=== PATIENT | male | born 1980 | race Caucasian/White ===

== ENCOUNTER 2021-04-16 20:26 | Emergency (ER) | payer MEDICAID, SELFPAY ==
[2021-02-22 18:14] VITALS: BMI 23.6
[2021-04-16 20:27] VITALS: BP 123/84; PULSE 99; RESP 16; TEMP 36.6; O2SAT 97; BMI 25.7
--- NOTE | 2021-04-16 21:13 | EX.ED.GENINJ ---
HPI History of Present Illness Chief Complaint: Fall Informant: patient Onset/Context/Timing Onset: Weeks (1) Mechanism/Context: Fall Quality of Pain: Sharp Location: Sacrum Worsened by: Sitting, standing Relieved by: Nothing Associated Symptoms Associated Symptoms: Negative for Parasthesias, Weakness, Inability to ambulate and Loss of consciousness Narrative Narrative: Patient presents with pain in his tailbone that began after a fall 1 week ago. Patient states the bruising is getting progressively worse. Patient states he has not seen anybody for this since his fall. Patient states he is on aspirin and Plavix. Patient denies any head injury or loss of consciousness. Patient states he slipped and fell on a step. Patient describes his pain as sharp. Patient states his pain is worse with sitting and standing. Patient states nothing seems to help with the pain. Patient denies any radiation of the pain. Patient denies any bowel or bladder changes. Patient denies any saddle anesthesia. [facility] Medical History Acute ST elevation myocardial infarction (STEMI) of inferior wall (02/22/21) Anxiety Atherosclerotic heart disease of [place] coronary artery without angina pectoris Depression Ischemic cardiomyopathy Substance abuse Home Medications aspirin 81 mg chewable tablet 81 mg PO DAILY #30 tab 04/06/21 [Rx Last Taken Unknown] atorvastatin 40 mg tablet 40 mg PO DAILY #30 tab 04/06/21 [Rx Last Taken Unknown] clopidogrel 75 mg tablet 75 mg PO .COMPLEX #30 tab 04/06/21 [Rx Last Taken Unknown] Allergy/AdvReac Type Severity Reaction Status Date / Time No Known Allergies Allergy Verified 04/16/21 20:30 Surgical History History of coronary artery stent placement (02/22/21) Social History household members: none housing: other details: Presents from court room. Patient is presently incarcerated Smoking Status: Current every day smoker tobacco type: cigarettes alcohol intake: never substance use type: does not use ROS ROS ED Constitutional Constitutional ED: Denies chills or fever(s) Eyes Eyes: Denies blurry vision or change in vision ENT ENT ED: Denies rhinorrhea or sore throat Cardiovascular Cardiovascular: Denies chest pain or palpitations Respiratory/Chest Respiratory/Chest: Denies cough or dyspnea Gastrointestinal Gastrointestinal: Denies nausea or vomiting Genitourinary Genitourinary ED: Denies dysuria or hematuria Musculoskeletal Musculoskeletal: Reports back pain; Denies neck pain Integumentary Denies abscess or rash Neurologic Neurologic: Denies headache(s) or weakness Allergic/Immunologic Allergic/Immunologic ED: Denies mouth swelling or urticaria EXAM Physical Exam Const Vital Signs: 04/16/21 20:27 04/16/21 20:36 Temperature 97.9 F Temperature Source Temporal Pulse Rate 99 Respiratory Rate 16 Respiratory Effort Normal Respiratory Depth Normal Respiratory Pattern Normal Blood Pressure 123/84 H Blood Pressure Mean 97 Pulse Ox 97 Oxygen Delivery Method Room Air Room Air Positive well nourished Neck full ROM General: Negative for tenderness Back/Spine Back/Spine Narrative: There is tenderness over the sacrum. There is edema and ecchymosis over the sacrum and right gluteal area. There is no bony crepitance or step-off. Range of motion was limited in all motions of the lumbar spine secondary to pain. Strength is 5/5 bilaterally in lower extremities. There are no sensory deficits. Neuro oriented x3, CN's II-XII intact bilaterally, moves all extremities, no focal motor deficits and no sensory deficits noted Sensorium / Orientation: alert Psych mental status grossly normal MDM MDM MDM Narrative Medical decision making narrative: X-rays of the sacrum and coccyx were obtained. There are 3 views. On my interpretation, there is no acute fracture or dislocation. There is no soft tissue swelling. Radiologist also interpreted the x-rays and agrees. Patient was advised of his findings. Patient was instructed to continue Tylenol and ibuprofen as needed for pain. Patient is instructed use ice to the area. Patient was instructed to sit on a doughnut pillow to relieve some of the pressure off of his sacrum and coccyx. Patient was instructed to follow-up with his primary care physician in 5 to 7 days. Patient understood and was agreeable with the plan. All questions were answered. Radiography Diagnostic Testing: Radiology Impression Sacrum and Coccyx X-Ray 04/16/21 21:40 IMPRESSION: Normal x-rays of the sacrum and coccyx. Electronically Signed: Kelsey Scmhitt MD at 22:16 EDT , Service support , Discharge Plan Triage Chief Complaint: Fall ED Provider: Wilfredo Carlson Dx/Rx/DC Orders Clinical Impression: Contusion of sacrum Instructions: ED Coccyx or Sacrum Contusion Prescriptions: No Action clopidogrel [Plavix] 75 mg tablet 75 mg PO .COMPLEX Qty: 30 RF: 11 atorvastatin 40 mg tablet 40 mg PO DAILY Qty: 30 RF: 11 aspirin 81 mg tablet,chewable 81 mg PO DAILY Qty: 30 RF: 11 Primary Care Provider: Camacho England Referrals: Camacho England DO [Primary Care Provider] - 3-5 Days Disposition Disposition: Home, Self Care
--- NOTE | 2021-04-16 21:40 | RAD_ITS ---
STUDY: X-RAY - SACRUM/COCCYX REASON FOR EXAM: Male, 41 years old. trauma/pain TECHNIQUE: 3 view(s) of the sacrum and coccyx were obtained. COMPARISON: None. FINDINGS: Normal bilateral sacroiliac joints. Normal visualized sacral ala and fused sacral bodies. Normal sacrococcygeal junction with a normal angulation. Normal coccygeal segments. The presacral soft tissue structures are unremarkable. RAD/Sacrum-Coccyx min 2 Views IMPRESSION: Normal x-rays of the sacrum and coccyx. Electronically Signed: Kelsey Schmitt MD at 22:16 EDT , Service support ,
--- NOTE | 2021-04-16 23:31 | ED.RN ---
entered room to provide d/c instructions and room was empty. pt was not in restrooms or waiting area. chikis sousa rn [id number]
== END 2021-04-16 23:33 | disposition home or self-care (01) ==
PROVIDERS: Emergency Provider Emergency Medicine; PCP Family Medicine
DX: S30.0XXA Contusion of lower back and pelvis, initial encounter (principal); W01.0XXA Fall on same level from slipping, tripping and stumbling without subsequent striking against object, initial encounter; F41.9 Anxiety disorder, unspecified; I25.10 Atherosclerotic heart disease of native coronary artery without angina pectoris; I25.5 Ischemic cardiomyopathy; I25.2 Old myocardial infarction; F17.210 Nicotine dependence, cigarettes, uncomplicated; Z79.82 Long term (current) use of aspirin; Z95.5 Presence of coronary angioplasty implant and graft
CPT/HCPCS: 72220; 99282

== ENCOUNTER 2022-02-03 13:46 | Inpatient (IN) | payer MEDICAID, SELFPAY ==
[2022-02-03] VITALS (9 sets, daily range): BP systolic 105–162; BP diastolic 79–98; PULSE 61–87; RESP 12–25; TEMP 36.4–37.1; O2SAT 95–99; BMI 29.4; BMI 28.2
--- NOTE | 2022-02-03 14:12 | EDS_ITS ---
HPI <FRANSISCO Cardoso - Last Filed: 02/03/22 17:37> History of Present Illness Chief Complaint: Chest Pain Narrative Narrative: 41-year-old male with history of drug abuse, CAD, VA and February 2021 presents to the emergency department with a sudden onset of heartburn, left- sided chest pain that radiates to his left side of his neck. Patient did have 2 cardiac stents placed in February 2021, he states that they were given and Plavix and other medicines however he stopped that approximately 6 months ago. Patient states that he just would continue to forget, he was going through some life changes and just decided not to take any medications. Patient currently does not have a PCP, oil gas and pipe tester. Patient was sitting on the couch watching TV when he developed this pain. He describes it as a burning tingling sensation. Denies any recent trips, fever chills, cough PFSH <FRANSISCO Cardoso - Last Filed: 02/03/22 17:37> PFSH Medical History (Updated 02/03/22 @ 22:[address] Galdino Bradley, DO) Acute ST elevation myocardial infarction (STEMI) of inferior wall (02/22/21) Anxiety Atherosclerotic heart disease of [place] coronary artery without angina pectoris Depression Ischemic cardiomyopathy Substance abuse Home Medications aspirin 81 mg chewable tablet 81 mg PO DAILY #30 tab 04/06/21 [Rx Last Taken Unknown] atorvastatin 40 mg tablet 40 mg PO DAILY #30 tab 04/06/21 [Rx Last Taken Unknown] clopidogrel 75 mg tablet 75 mg PO .COMPLEX #30 tab 04/06/21 [Rx Last Taken Unknown] Allergy/AdvReac Type Severity Reaction Status Date / Time No Known Allergies Allergy Verified 02/03/22 13:48 Family History (Updated 02/03/22 @ 18:19 by Elisha Castillo NP, [employer]ER[employer]C) Mother No cardiac disease Father No cardiac disease Surgical History History of coronary artery stent placement (02/22/21) Social History (Updated 02/03/22 @ 18:20 by Elisha Castillo NP, [employer]NA[employer] T[employer]ER-C) household members: none Smoking Status: Light Smoker (<10/day) alcohol intake: former substance use type: other details: clean one year ROS <FRANSISCO Cardoso - Last Filed: 02/03/22 17:37> ROS ED ROS Narrative Constitutional: Negative for fever, chills, weight loss, weakness Eyes: Negative for vision loss, vision change, double vision ENT: Negative for any sore throat, ear pain, congestion Cardiovascular: Negative for any tightness, palpitations, racing heartbeat. Positive for chest pain that radiates to his left neck Respiratory: Negative for any cough, sputum production, hemoptysis, shortness of breath, shortness of breath on exertion, orthopnea Gastrointestinal: Negative for any abdominal pain, nausea, vomiting, diarrhea, constipation, blood in stool, blood in vomit : Negative for any urinary frequency, incontinence, dysuria, retention, blood in urine Muscle skeletal: Negative for any muscle joint pain, stiffness, myalgias, arthralgias, neck pain, back pain Neurological: Negative for any headache, dizziness, syncope, numbness or tingling Skin: Negative for any rashes, lumps, itching, abrasions, lacerations Psychiatric: Negative for any depression, anxiety, stress, suicidal ideation, homicidal ideation Hematologic: Negative for any easy bruising, excessive bruising, easy bleeding Allergies: Negative for any eczema, hives, rash EXAM <FRANSISCO Cardoso - Last Filed: 02/03/22 17:37> Physical Exam Narrative Exam Narrative: Vital signs reviewed. Patient is alert and orient x4, patient states that on a scale from 0-10, his pain is a 1 to almost nonexistent. Patient states that his got better when she was here. Patient's EKG was unremarkable. HEET: Head normocephalic atraumatic, TMs clear bilaterally. Posterior pharynx is clear, moist mucous membranes. Nares clear bilaterally. Neck: Supple with no lymphadenopathy or tenderness. No signs of meningismus, negative jolt sign. Cardiac: Regular rate and rhythm no murmurs gallops or rubs, equal peripheral pulses bilaterally. Respiratory: Lungs clear to auscultation bilaterally. No chest tenderness. Abdomen: Soft, nontender, nondistended. No abdominal bruit or pulsatile masses. No hepatosplenomegaly Extremities: No peripheral edema, no signs of gross trauma or deformity. Active full range of motion of all extremities. Neuro: Cranial nerves II through XII intact, no focal neurological deficits. Skin: Clean dry and intact with no rash, purpura, petechiae, vesicles or pustules. Backslash flank: No CVA tenderness, no midline spinal tenderness, no deformity. Psych: Normal mood and affect. No SI, HI or acute psychosis. Const Vital Signs: 02/03/22 13:46 02/03/22 13:49 02/03/22 13:51 Temperature 98.2 F Temperature Source Temporal Pulse Rate 87 Respiratory Rate 22 H Respiratory Effort Normal Non-Labored Blood Pressure 162/90 H Blood Pressure Mean 114 Pulse Ox 97 Oxygen Delivery Method Room Air 02/03/22 14:46 02/03/22 16:19 02/03/22 17:36 Temperature Temperature Source Pulse Rate 76 68 74 Respiratory Rate 25 H 12 21 H Respiratory Effort Blood Pressure 135/87 H 132/98 H 141/95 H Blood Pressure Mean 103 109 110 Pulse Ox 95 99 97 Oxygen Delivery Method Room Air Room Air Room Air 02/03/22 17:37 Temperature 98.8 F Temperature Source Oral Pulse Rate 70 Respiratory Rate 17 Respiratory Effort Blood Pressure 141/95 H Blood Pressure Mean 110 Pulse Ox 96 Oxygen Delivery Method Room Air Positive well nourished and well developed General Appearance ED: well developed <Dr. Galdino Bradley, DO - Last Filed: 02/03/22 22:57> Physical Exam Const Vital Signs: 02/03/22 13:46 02/03/22 13:49 02/03/22 13:51 Temperature 98.2 F Temperature Source Temporal Pulse Rate 87 Respiratory Rate 22 H Respiratory Effort Normal Non-Labored Blood Pressure 162/90 H Blood Pressure Mean 114 Pulse Ox 97 Oxygen Delivery Method Room Air 02/03/22 14:46 02/03/22 16:19 02/03/22 17:36 Temperature Temperature Source Pulse Rate 76 68 74 Respiratory Rate 25 H 12 21 H Respiratory Effort Blood Pressure 135/87 H 132/98 H 141/95 H Blood Pressure Mean 103 109 110 Pulse Ox 95 99 97 Oxygen Delivery Method Room Air Room Air Room Air 02/03/22 17:37 Temperature 98.8 F Temperature Source Oral Pulse Rate 70 Respiratory Rate 17 Respiratory Effort Blood Pressure 141/95 H Blood Pressure Mean 110 Pulse Ox 96 Oxygen Delivery Method Room Air MDM <FRANSISCO Cardoso - Last Filed: 02/03/22 17:37> [facility] MDM Narrative Medical decision making narrative: Patient appears well, patient appears nontoxic, vital signs are stable. Patient presents to the emergency department with a sudden onset of epigastric burning, left-sided chest pain while watching TV today. Due to the patient's recent history of VA less than a year ago, he is here for evaluation. Patient received a full cardiac work-up, patient's chest x-ray was unremarkable, patient's CBC was unremarkable, patient's chemistries showed no acute abnormality. Patient's initial troponin was 5. Patient was given 324 aspirin here, however while the patient was here, he had little to no pain. Patient has not been taking his Brilinta or his statin for greater than 6 months. Patient will receive a second troponin 2 hours after the first. Patient remains pain-free, patient's second troponin was 40. Due to this jump, I did speak with cardiology, they would like us to loading dose him of Brilinta as well as start a heparin drip. Patient will be admitted to PCU admission. Dr. Arnold will admit the patient. Patient be admitted for chest pain, elevated troponin, noncompliance of medication. Lab Data Labs: Laboratory Results - last 24 hr 02/03/22 02/03/22 02/03/22 14:15 14:15 14:15 WBC 7.6 RBC 4.91 Hgb 15.0 Hct 44.2 MCV 90.0 MCH 30.5 MCHC 33.9 RDW Std Deviation 43.6 RDW Coeff of Laury 13.2 Plt Count 338 MPV 9.0 Immature Gran % (Auto) 0.300 Neut % (Auto) 62.3 Lymph % (Auto) 27.0 [place] % (Auto) 7.6 Eos % (Auto) 2.0 Baso % (Auto) 0.8 Absolute Neuts (auto) 4.7 Absolute Lymphs (auto) 2.05 Nucleated RBC % 0 PT 13.1 INR 1.0 APTT 27.8 Sodium 139 Potassium 4.0 Chloride 106 Carbon Dioxide 28.0 Anion Gap 5 BUN 14 Creatinine 0.96 Estim Creat Clear Calc 115.36 Est GFR (MDRD) Af Amer 109 Est GFR (MDRD) Non-Af 90 BUN/Creatinine Ratio 14.5 Glucose 123 H Calcium 9.1 Troponin I High Sens 5 02/03/22 16:25 WBC RBC Hgb Hct MCV MCH MCHC RDW Std Deviation RDW Coeff of Laury Plt Count MPV Immature Gran % (Auto) Neut % (Auto) Lymph % (Auto) [place] % (Auto) Eos % (Auto) Baso % (Auto) Absolute Neuts (auto) Absolute Lymphs (auto) Nucleated RBC % PT INR APTT Sodium Potassium Chloride Carbon Dioxide Anion Gap BUN Creatinine Estim Creat Clear Calc Est GFR (MDRD) Af Amer Est GFR (MDRD) Non-Af BUN/Creatinine Ratio Glucose Calcium Troponin I High Sens 40 Radiography Diagnostic Testing: Clinical Impression(s) from Imaging Studies Chest X-Ray 02/03/22 14:40 IMPRESSION: Subsegmental atelectatic streaks in the left lower lung field, no evidence of focal consolidation or infiltrate Electronically Signed: Mickey Manriquez MD at 15:03 EDT Reading Location ID and State: [facility] / [place] Tel , Service support , <Dr. Galdino Bradley, DO - Last Filed: 02/03/22 22:57> [facility] MDM Narrative Medical decision making narrative: Attending note: Patient seen and evaluated with coke inspector. I perform my own [id number] evaluation. I agree with the plan of work-up. Sudden pain mid chest to the right side of his jaw and neck. Dyspnea and nausea. No pain on the arms. Similar symptoms when he had a STEMI 11 months ago. Apparently from records was in court when this occurred. He had 2 drug-eluting stents to the right coronary artery. From records baby aspirin and Brilinta twice a day for at least a year. He was incarcerated for 6 months since being out has not taken the medications has not followed up. Stop smoking however currently vapes. Symptoms are mild during my examination. Exam alert nontoxic patient in no acute distress heart was normal lungs were clear no swe lling of the extremities pulses intact x4. EKG sinus rhythm no acute changes. He was given aspirin labs initial troponin was 5 he was symptom-free on reevaluation. With his history is high risk for in-stent stenosis with drug- eluting stents being off his antiplatelets. 2-hour troponin drawn was elevated up to 40 meeting NSTEMI ACS criteria with a change greater than 20. We discussed with Dr. Garcia, discussed patient's history, did recommend loading with Brilinta heparin drip and admission. Spoke with hospital team for admission. Chest x-ray 1 view reviewed by myself and read by radiology shows no acute process. Lab Data Attestation: I reviewed the patient's lab results. Labs: Laboratory Results - last 24 hr 02/03/22 02/03/22 02/03/22 14:15 14:15 14:15 WBC 7.6 RBC 4.91 Hgb 15.0 Hct 44.2 MCV 90.0 MCH 30.5 MCHC 33.9 RDW Std Deviation 43.6 RDW Coeff of [place] 13.2 Plt Count 338 MPV 9.0 Immature Gran % (Auto) 0.300 Neut % (Auto) 62.3 Lymph % (Auto) 27.0 [place] % (Auto) 7.6 Eos % (Auto) 2.0 Baso % (Auto) 0.8 Absolute Neuts (auto) 4.7 Absolute Lymphs (auto) 2.05 Nucleated RBC % 0 PT 13.1 INR 1.0 APTT 27.8 Sodium 139 Potassium 4.0 Chloride 106 Carbon Dioxide 28.0 Anion Gap 5 BUN 14 Creatinine 0.96 Estim Creat Clear Calc 115.36 Est GFR (MDRD) Af Amer 109 Est GFR (MDRD) Non-Af 90 BUN/Creatinine Ratio 14.5 Glucose 123 H Calcium 9.1 Troponin I High Sens 5 02/03/22 16:25 WBC RBC Hgb Hct MCV MCH MCHC RDW Std Deviation RDW Coeff of [place]ury Plt Count MPV Immature Gran % (Auto) Neut % (Auto) Lymph % (Auto) [place] % (Auto) Eos % (Auto) Baso % (Auto) Absolute Neuts (auto) Absolute Lymphs (auto) Nucleated RBC % PT INR APTT Sodium Potassium Chloride Carbon Dioxide Anion Gap BUN Creatinine Estim Creat Clear Calc Est GFR (MDRD) Af Amer Est GFR (MDRD) Non-Af BUN/Creatinine Ratio Glucose Calcium Troponin I High Sens 40 Radiography Chest X-Ray - ED: 1 View, Read by ED Physician and Read by Radiologist Diagnostic Testing: Clinical Impression(s) from Imaging Studies Chest X-Ray 02/03/22 14:40 IMPRESSION: Subsegmental atelectatic streaks in the left lower lung field, no evidence of focal consolidation or infiltrate Electronically Signed: iMckey Manriquez MD at 15:03 EDT , <Dr. Galdino Bradley, DO - Last Filed: 02/03/22 22:57> Critical Care Time Critical Care Time: Yes Critical care time (excluding procedures): 30-74 minutes, Discussing w/Patient &/or Family/Heel Finisher, Discussing w/Consultants, Arranging Admission or Transfer, Performing Direct Patient Care at Bedside and - (40 minutes) Discharge Plan Dx/Rx/DC Orders Clinical Impression: Chest pain, Elevated troponin, Non-compliance, Nicotine dependence, Angina at rest Disposition Disposition: Acute Care Hospital [facility] Discharge Date/Time: 02/03/22 17:56
[2022-02-03 14:21] LABS: Absolute Lymphocyte Count 2.05 X10^3/uL (0.83-4.51); Absolute Neutrophil Count 4.7 X10^3/uL (2.0-7.7); Basophil# 0.06 X10^3/uL; Basophil% 0.8 % (0-1); Eosinophil# 0.15 X10^3/uL; Hematocrit 44.2 % (40-54); Lymphocyte # 2.05 X10^3/ul (0.83-4.51); Mean Corp Hgb Conc 33.9 g/dL (32-36); Mean Corpuscular Hgb 30.5 pg (27.0-32.0); Monocyte# 0.58 X10^3/uL; Monocyte% 7.6 % (0-10); NRBC Flagged by Analyzer 0 % (0-5); Neutrophil # 4.74 X10^3/uL (2.7-7.7); Neutrophil % 62.3 % (47-70); Platelet Count 338 K/mm3 (150-450); RBC Distribution Width CV 13.2 % (11.6-14.6); RBC Distribution Width SD 43.6 fl (35.1-43.9); Red Blood Count 4.91 M/mm3 (4.6-6.2); White Blood Count 7.6 K/mm3 (4.4-11.0)
[2022-02-03 14:40] LABS: Anion Gap 5 (5-15); BUN 14 mg/dL (7-18); BUN/Creat Ratio 14.5 RATIO (10-20); Calcium,Total 9.1 mg/dL (8.5-10.1); Chloride 106 mmol/L (98-107); Creatinine, Serum 0.96 mg/dL (0.70-1.30); EST Glomerular Filtration Rate 90 mL/min (>60); Est Glom Filt Rate - Afr Amer 109 mL/min (>60); Estimated Creatinine Clearance 115.36 ml/min; Glucose 123 mg/dL (74-106); Sodium Level 139 mmol/L (136-145); Troponin-I HS 5 pg/mL (3.0-78.0)
--- NOTE | 2022-02-03 14:40 | RAD_ITS ---
INDICATION: chest pain EXAMINATION/TECHNIQUE: X-RAY - XR Chest 1 View COMPARISON: None. FINDINGS: LINES/DEVICES: None. LUNGS: Linear subsegmental atelectatic streaks visualized in the left lower lung [place] with mild bronchovascular prominence but no evidence of focal consolidation is seen. The costophrenic angles are clear bilaterally, no evidence of pleural effusion, no evidence of pneumothorax or parenchymal lung mass. MEDIASTINUM AND CARDIOVASCULAR STRUCTURES: Cardiac silhouette not enlarged. Central airways and mediastinal contour are unremarkable. BONES AND SOFT TISSUES: Unremarkable. RAD/Chest 1 View (Portable) IMPRESSION: Subsegmental atelectatic streaks in the left lower lung field, no evidence of focal consolidation or infiltrate Electronically Signed: Mickey Manriquez MD at 15:03 EDT ,
[2022-02-03] MEDS: Aspirin 81 MG TAB.CHEW 324 MG PO (14:45)
--- NOTE | 2022-02-03 14:54 | EKG12_ITS ---
Test Reason : CP Blood Pressure : / mmHG Vent. Rate : 085 BPM Atrial Rate : 085 BPM P-R Int : 144 ms QRS Dur : 088 ms QT Int : 368 ms P-R-T Axes : 049 014 031 degrees QTc Int : 437 ms Normal sinus rhythm Normal ECG Confirmed by DEE DAVIDSON, JAZZ ([id number]), online content editor PARUL BANKS ([id number]) on 02/08/2022 8:51:48 AM Referred By: ALLEY Confirmed By:JAZZ PRICE MD
[2022-02-03 17:03] LABS: Troponin-I HS (w/2H Reflex) 40 pg/mL (3.0-78.0)
[2022-02-03] MEDS: Heparin Injection (Vial) 5,000 UNIT/ML VIAL 4000 UNIT IV (17:31)
[2022-02-03] MEDS: TICAGRELOR 90 MG TABLET 180 MG PO (17:32)
[2022-02-03 17:53] LABS: Partial Thromboplast Time 27.8 Seconds (24.1-36.2); Prothrombin Time (Protime)PT. 13.1 SECONDS (11.7-14.9)
--- NOTE | 2022-02-03 18:17 | HP.PCM.HOS_ITS ---
Documented by User: Elisha Castillo NP, [employer] 02/03/22 18:23 HPI - General General Date of Admission: 02/03/22 HPI Narrative BISI WYATT, is a 41 M who presents to the emergency room due to chest pain. Patient has a history of STEMI February 2021 status post 2 stents to RCA. He states he has been off all cardiac medications for the past 6 months after he was r eleased from custodial. Patient reports he developed chest pain today while he was at rest which he describes as a burning sensation in the center of his chest and radiated to his back and bilateral jaw. He states his symptoms felt the same as his prior CA. He states he was at rest when he developed chest pain in the past as well. He reports a history of substance abuse however has been sober and drug-free for at least 1 year. His other past medical history includes CAD, depression, ischemic cardiomyopathy, tobacco dependence. [facility] Medical History (Updated 02/03/22 @ 18:12 by Brunilda Flores) Acute ST elevation myocardial infarction (STEMI) of inferior wall (02/22/21) Anxiety Atherosclerotic heart disease of [place] coronary artery without angina pectoris Depression Ischemic cardiomyopathy Substance abuse Home Medications aspirin 81 mg chewable tablet 81 mg PO DAILY #30 tab 04/06/21 [Rx Last Taken Unknown] atorvastatin 40 mg tablet 40 mg PO DAILY #30 tab 04/06/21 [Rx Last Taken Unknown] clopidogrel 75 mg tablet 75 mg PO .COMPLEX #30 tab 04/06/21 [Rx Last Taken Unknown] Allergy/AdvReac Type Severity Reaction Status Date / Time No Known Allergies Allergy Verified 02/03/22 13:48 Family History (Updated 02/03/22 @ 18:19 by Elisha Castillo NP, [employer]) Mother No cardiac disease Father No cardiac disease Surgical History History of coronary artery stent placement (02/22/21) Social History (Updated 02/03/22 @ 18:20 by Elisha Castillo NP, [employer]) household members: none Smoking Status: Light Smoker (<10/day) alcohol intake: former substance use type: other details: clean one year ROS Constitutional Constitutional: Denies change in weight, chills, fatigue, fever(s) or weakness Cardiovascular Cardiovascular: Reports chest pain; Denies edema, lightheadedness, palpitations or syncope Respiratory/Chest Respiratory/Chest: Denies cough, dyspnea, productive cough, shortness of breath at rest, shortness of breath with exertion or wheezing Gastrointestinal Gastrointestinal: Denies abdominal pain, constipation, diarrhea, nausea or vomiting Genitourinary Genitourinary: Denies burning urination, difficulty urinating, dysuria, hematuri a, urinary frequency, urinary incontinence or urinary urgency Musculoskeletal Musculoskeletal: Denies back pain, joint pain or muscle weakness Integumentary Integumentary: Denies erythema, lesions, rash or wounds Neurologic Neurologic: Denies abnormal speech, confusion, dizziness, focal weakness, numbness, paresthesias, seizure-like activity or syncope Psychiatric Psychiatric: Denies anxiety or depression Hematologic/Lymphatic Hematologic/Lymphatic: Denies anemia, easy bleeding or easy bruising Allergic/Immunologic Allergic/Immunologic: Denies hives or asthma Vital Signs Vital Signs Vital Signs: 02/03/22 13:46 02/03/22 13:49 02/03/22 13:51 Temperature 98.2 F Temperature Source Temporal Pulse Rate 87 Respiratory Rate 22 H Respiratory Effort Normal Non-Labored Blood Pressure 162/90 H Blood Pressure Mean 114 Pulse Ox 97 Oxygen Delivery Method Room Air 02/03/22 14:46 02/03/22 16:19 02/03/22 17:36 Temperature Temperature Source Pulse Rate 76 68 74 Respiratory Rate 25 H 12 21 H Respiratory Effort Blood Pressure 135/87 H 132/98 H 141/95 H Blood Pressure Mean 103 109 110 Pulse Ox 95 99 97 Oxygen Delivery Method Room Air Room Air Room Air 02/03/22 17:37 Temperature 98.8 F Temperature Source Oral Pulse Rate 70 Respiratory Rate 17 Respiratory Effort Blood Pressure 141/95 H Blood Pressure Mean 110 Pulse Ox 96 Oxygen Delivery Method Room Air Weight Weight: 219 lb 12.814 oz Body Mass Index (BMI) 28.2 Physical Exam Const alert, oriented x3 and no apparent distress Orientation / Consciousness: awake, oriented to person, oriented to place and oriented to time HEENT normocephalic and moist oral mucous membranes Eyes PERRL, EOMs intact bilaterally and conjunctivae normal Neck no lymphadenopathy Resp normal respiratory effort and clear to auscultation bilaterally Cardio regular rate, regular rhythm and no murmurs Peripheral Pulses: pulses 2+ throughout GI normal to inspection, nondistended, normoactive bowel sounds, non-tender and non-distended Extremity normal to inspection Skin no rashes or lesions noted Lesions: no lesions Rashes: no rashes Trauma: no lacerations or abrasions Neuro CN's II-XII intact bilaterally, no focal motor deficits, no sensory deficits noted and deep tendon reflexes 2+ bilaterally Psych mental status grossly normal and affect normal Results Lab / Micro Data Result Diagrams: 02/03/22 14:15 02/03/22 14:15 Labs: Laboratory Results - last 24 hr 02/03/22 14:15: WBC 7.6, RBC 4.91, Hgb 15.0, Hct 44.2, MCV 90.0, MCH 30.5, MCHC 33.9, RDW Std Deviation 43.6, RDW Coeff of Laury 13.2, Plt Count 338, MPV 9.0, Immature Gran % (Auto) 0.300, Neut % (Auto) 62.3, Lymph % (Auto) 27.0, [place] % (Auto) 7.6, Eos % (Auto) 2.0, Baso % (Auto) 0.8, Absolute Neuts (auto) 4.7, Absolute Lymphs (auto) 2.05, Nucleated RBC % 0 02/03/22 14:15: Sodium 139, Potassium 4.0, Chloride 106, Carbon Dioxide 28.0, Anion Gap 5, BUN 14, Creatinine 0.96, Estim Creat Clear Calc 115.36, Est GFR (MDRD) Af Amer 109, Est GFR (MDRD) Non-Af 90, BUN/Creatinine Ratio 14.5, Glucose 123 H, Calcium 9.1, Troponin I High Sens 5 02/03/22 14:15: PT 13.1, INR 1.0, APTT 27.8 02/03/22 16:25: Troponin I High Sens 40 Radiology Impression Chest X-Ray 02/03/22 14:40 IMPRESSION: Subsegmental atelectatic streaks in the left lower lung field, no evidence of focal consolidation or infiltrate Electronically Signed: Mickey Manriquez MD at 15:03 EDT Reading Location ID and State: [address] [place] [address] Tel , Service support , Assessment & Plan Assessment/Plan (1) Chest pain: PLAN: 1. Chest pain-EKG without acute ST-T changes. Consult cardiology given history. Trend enzymes. Plan for stress test in a.m. unless enzymes inc rease. Aspirin, Plavix, statin. 2. CAD with history of PCI/ischemic cardiomyopathy- stopped all cardiac meds 6 months ago. Continue aspirin, Plavix, statin. 3. Tobacco dependence-currently vaping. Encourage cessation. 4. Depression-not on regimen. 5. History of polysubstance abuse-states clean/sober for 1 year. DVT prophylaxis-Heparin subcu This patient was seen by Elisha Castillo NP-[place] under the supervision of Dr. Arnold. Time spent examining patient, reviewing data and subsequent management of care: 16 minutes Documented by User: Dr. Rhett Arnold DO 02/03/22 19:34 HPI - General General Date of Admission: 02/03/22 [facility] Medical History (Updated 02/03/22 @ 18:12 by Brunilda Flores) Acute ST elevation myocardial infarction (STEMI) of inferior wall (02/22/21) Anxiety Atherosclerotic heart disease of [place] coronary artery without angina pectoris Depression Ischemic cardiomyopathy Substance abuse Home Medications aspirin 81 mg chewable tablet 81 mg PO DAILY #30 tab 04/06/21 [Rx Last Taken Unknown] atorvastatin 40 mg tablet 40 mg PO DAILY #30 tab 04/06/21 [Rx Last Taken Unknown] clopidogrel 75 mg tablet 75 mg PO .COMPLEX #30 tab 04/06/21 [Rx Last Taken Unknown] Allergy/AdvReac Type Severity Reaction Status Date / Time No Known Allergies Allergy Verified 02/03/22 13:48 Family History (Updated 02/03/22 @ 18:19 by Elisha Castillo NP, [employer]) Mother No cardiac disease Father No cardiac disease Surgical History History of coronary artery stent placement (02/22/21) Social History (Updated 02/03/22 @ 18:20 by Elisha Castillo [employer], [employer]) household members: none Smoking Status: Light Smoker (<10/day) alcohol intake: former substance use type: other details: clean one year Results Lab / Micro Data Result Diagrams: 02/03/22 14:15 02/03/22 14:15 Charges/Coding Addendum Addendum: Patient was seen and examined today independently of Elisha Castillo, he came to the ER today with complaints of precordial chest discomfort which she described as burning in nature, it radiated into his left jaw, this lasted approximately 30 minutes. Patient has a history of coronary artery disease and had a stent placed approximately a year ago but he has been noncompliant with taking medications and has not been taking any medications for 6 months. Meagan ent denies any radiation of pain down his left arm, he denies any nausea or vomiting. On examination he appeared in good health and spirits. Vital signs as documented. Skin warm and dry and without overt rashes. Neck without JVD, neck was supple, trachea midline, thyroid was normal. Lungs clear bilaterally, normal air movement was noted. Heart exam notable for regular rhythm, normal sounds and absence of murmurs, rubs or gallops. Abdomen unremarkable and without evidence of organomegaly, masses, or abdominal aortic enlargement. Bowel sounds are present, abdomen is not distended. Extremities nonedematous, no cyanosis was noted, no clubbing was noted. Neuro: Cranial nerves II through XII are grossly intact, no focal motor deficits were noted, sensation to light touch and pinprick intact, motor exam 5/5 throughout. Psych: Patient is alert and oriented x3, he does not appear anxious or depressed, he does not appear agitated. Work-up in the emergency room included cardiac enzymes which were normal, patient's EKG showed normal sinus rhythm without evidence of ischemic changes, patient's chest x-ray showed subsegmental atelectatic streaks in the left lower lung field. Impression: #1 chest pain-in a patient with known coronary artery disease who has been noncompliant with outpatient medications-patient will be placed in observation status on PCU, cardiac enzymes will be cycled, if cardiac enzymes remain normal he will undergo an exercise stress test tomorrow. He will be seen in consultation by cardiology. #2 atherosclerotic heart disease-patient was placed on aspirin 81 mg daily, Plavix 75 mg daily, and atorvastatin 40 mg daily-this was under direction of cardiology (Dr. Garcia) #3 noncompliance with medical treatment-complicates recovery, care, and prognosis. I have reviewed Elisha Castillo's history and physical including her medical assessment and plan of care and with the above additions endorse it. Total clinical time spent by myself addressing the patient's medical issues, reviewing the patient's medical records, and collaborating with the patient's care team: 55 minutes Visit Charges OBSV E&M: 45002 Initial observation care L3
[2022-02-03 18:30] LABS: Reflex Troponin-HS? (from REC) Y
[2022-02-03] MEDS: Clopidogrel Bisulfate 75 MG Tablet PO (18:52)
[2022-02-03] MEDS: 0.9% Saline Lock 10 ML Syringe IV (20:55)
[2022-02-03] MEDS: Atorvastatin Calcium 40 MG Tablet PO (20:56)
[2022-02-03 21:20] LABS: Troponin-I HS 291 pg/mL (3.0-78.0)
--- NOTE | 2022-02-03 21:20 | NURSING ---
Pts primary rn aware troponin of 291 at this time.
[2022-02-03] MEDS: Enoxaparin 100 MG/ML Syringe SC (22:47)
--- NOTE | 2022-02-03 23:54 | NURSING ---
Patient Troponin increased from [id number] [place]is notified Lovenox ordered and stress test canceled. Egyptologist to Follow up in AM. Patient gives permission to start heart Cath prep
[2022-02-04] VITALS (15 sets, daily range): BP systolic 93–111; BP diastolic 46–84; PULSE 56–79; RESP 16–18; TEMP 36.4–36.6; O2SAT 94–97
[2022-02-04 00:01] LABS: Troponin-I HS 449 pg/mL (3.0-78.0)
--- NOTE | 2022-02-04 00:01 | NURSING ---
Pts primary rn aware of critical troponin result of 449 at this time.
--- NOTE | 2022-02-04 05:55 | EKG12_ITS ---
Test Reason : PRE OP Blood Pressure : / mmHG Vent. Rate : 065 BPM Atrial Rate : 065 BPM P-R Int : 150 ms QRS Dur : 088 ms QT Int : 418 ms P-R-T Axes : 064 005 002 degrees QTc Int : 434 ms Normal sinus rhythm Nonspecific T wave abnormality Confirmed by DEE DAVIDSON, JAZZ ([id number]), videotape editor PARUL BANKS ([id number]) on 02/07/2022 11:38:09 AM Referred By: JASON Confirmed By:JAZZ PRICE MD
[2022-02-04] MEDS: Clopidogrel Bisulfate 75 MG Tablet PO (06:32)
[2022-02-04] MEDS: Aspirin 81 MG TAB.CHEW PO (06:32)
[2022-02-04 06:37] LABS: Troponin-I HS 674 pg/mL (3.0-78.0)
--- NOTE | 2022-02-04 09:09 | PCM.CONS.C ---
Documented by User: HIWOT Serra 02/04/22 11:19 Assessment & Plan Assessment/Plan (1) Elevated troponin: (2) Atherosclerotic heart disease of [place] coronary artery without angina pectoris: (3) History of coronary artery stent placement: (4) Ischemic cardiomyopathy: PLAN: With his elevated troponins will pursue a diagnostic heart catheterization- this was discussed with Dr. Morales He was restarted on his antiplatelet. He was started on a heparin drip. He was also restarted on his atorvastatin and aspirin. After his heart catheterization would like to obtain an echocardiogram During his previous hospitalization he was not started on an MARY or beta-andrew due to hypotension, would like to see if we could start him on a low-dose beta-andrew in addition to low-dose MARY inhibitor, this will be decided based on findings of heart catheterization. HPI Consult Data Date of Consult: 02/04/22 HPI Narrative HPI Narrative: BISI WYATT, is a 41 M who presented to [facility] ER yesterday for chest discomfort that radiated to his left jaw that lasted approximately 30 minutes. Patient noted that his symptoms were similar to what he had prior to his stenting in February 2021 where he had 2 stents to his RCA. He notes that he may have started with jaw discomfort a few days prior to his presentation yesterday. Patient notes that he has not been on any cardiac medication for the last 6 months. He was not on a BB or MARY d/t hx of hypotension with STEMI. Initial troponin was negative in the ER, patient was admitted to PCU for further evaluation. He was started on aspirin, Plavix, atorvastatin. His troponins have trended upwards of 291, 449, 674. He does have a history of coronary artery disease post stenting, ischemic cardiomyopathy, tobacco dependence. Echocardiogram post HI in February 2021 demonstrated an ejection fraction of 45 to 50%. [facility] Medical History (Updated 02/04/22 @ 11:09 by HIWOT Serra) Acute ST elevation myocardial infarction (STEMI) of inferior wall (02/22/21) Anxiety Atherosclerotic heart disease of [place] coronary artery without angina pectoris Depression Ischemic cardiomyopathy NSTEMI (non-ST elevated myocardial infarction) Substance abuse Home Medications aspirin 81 mg PO DAILY 30 Days #30 tab 02/04/22 [Rx Last Taken Unknown] atorvastatin 40 mg PO DAILY 30 Days #30 tab 02/04/22 [Rx Last Taken Unknown] carvedilol 3.125 mg PO BID #60 tab 02/04/22 [Rx Last Taken Unknown] clopidogrel [Plavix] 75 mg PO DAILY 30 Days #30 tab 02/04/22 [Rx Last Taken Unknown] Allergy/AdvReac Type Severity Reaction Status Date / Time No Known Allergies Allergy Verified 02/03/22 13:48 Family History (Updated 02/03/22 @ 18:19 by Elisha Castillo LEARNING AND DEVELOPMENT ASSOCIATE, LEARNING AND DEVELOPMENT ASSOCIATE-C) Mother No cardiac disease Father No cardiac disease Surgical History History of coronary artery stent placement (02/22/21) Social History (Updated 02/03/22 @ 18:20 by Elisha Castillo NP, LEARNING AND DEVELOPMENT ASSOCIATE-C) household members: none Smoking Status: Light Smoker (<10/day) alcohol intake: former substance use type: other details: clean one year ROS Constitutional Constitutional: Denies change in weight, chills, fatigue, frequent falls, headache(s) or lethargy Eyes Eyes: Denies acute decrease in peripheral vision, blurry vision or change in vision ENT HEENT: Denies dizziness, dry mouth, epistaxis, headache(s), tinnitus or vertigo Cardiovascular Cardiovascular: Reports as per HPI; Denies claudication, dyspnea at rest, dyspnea on exertion, edema, irregular heart rhythm, lightheadedness, orthopnea, orthostatic symptoms, palpitations or pedal edema Respiratory/Chest Respiratory/Chest: Denies cough, dyspnea, dyspnea on exertion, tachypnea or wheezing Gastrointestinal Gastrointestinal: Denies abdominal pain, bloating, coffee ground emesis, diarrhea, heartburn, hematemesis, hematochezia, melena or nausea Genitourinary Genitourinary: Denies hematuria Musculoskeletal Musculoskeletal: Denies myalgias, numbness or tingling Neurologic Neurologic: Denies abnormal gait, abnormal speech, memory loss, paresthesias or weakness Physical Exam Const alert, oriented x3, no apparent distress and healthy appearing HEENT normocephalic, head/scalp atraumatic, hearing grossly normal bilaterally, external ears normal, external nose normal and moist oral mucous membranes Eyes PERRL, EOMs intact bilaterally, conjunctivae normal and no scleral icterus Neck no lymphadenopathy, supple and no JVD Cardio regular rate, regular rhythm, S1 normal heart sound, S2 normal heart sound, no murmurs, no rub, no gallops, no clicks, no JVD and peripheral pulses 2+ throughout GI normal to inspection, nondistended, normoactive bowel sounds, soft to palpation, non-tender and non-distended Extremity normal to inspection, normal capillary refill, no clubbing, cyanosis or edema and no pedal edema Neuro oriented x3, CN's II-XII intact bilaterally, moves all extremities and no focal motor deficits Psych cooperative and affect normal Risk Stratification Risk Stratification Applicable: Yes Age >/= 65: No >/= 3 CAD Risk Factors (HTN, HLD, DM, family hx of CAD, or current smoker): No Aspirin Use in the Past 7 Days: No Severe Angina (>/= episodes in 24 hours): Yes EKG ST Changes >/= 0.5mm: No Positive Cardiac Marker: Yes AD Risk Stratification Score: 2 AD % Risk: 8% Risk Charges/Coding Visit Charges Office Visits / Consults: 50069 IP Consult L4 Objective Data Vital Signs: Vital Signs Temp Pulse Resp BP Pulse Ox 97.7 F L 68 16 110/76 95 02/04/22 07:44 02/04/22 07:44 02/04/22 07:44 02/04/22 07:44 02/04/22 07:44 Oxygen Delivery Method Room Air Weight: 219 lb 12.814 oz Body Mass Index (BMI) 28.2 Lab / Micro Data Result Diagrams: 02/03/22 14:15 02/03/22 14:15 Labs: Laboratory Results - last 24 hr 02/03/22 14:15: WBC 7.6, RBC 4.91, Hgb 15.0, Hct 44.2, MCV 90.0, MCH 30.5, MCHC 33.9, RDW Std Deviation 43.6, RDW Coeff of Laury 13.2, Plt Count 338, MPV 9.0, Immature Gran % (Auto) 0.300, Neut % (Auto) 62.3, Lymph % (Auto) 27.0, [place] % (Auto) 7.6, Eos % (Auto) 2.0, Baso % (Auto) 0.8, Absolute Neuts (auto) 4.7, Absolute Lymphs (auto) 2.05, Nucleated RBC % 0 02/03/22 14:15: Sodium 139, Potassium 4.0, Chloride 106, Carbon Dioxide 28.0, Anion Gap 5, BUN 14, Creatinine 0.96, Estim Creat Clear Calc 115.36, Est GFR (MDRD) Af Amer 109, Est GFR (MDRD) Non-Af 90, BUN/Creatinine Ratio 14.5, Glucose 123 H, Calcium 9.1, Troponin I High Sens 5 02/03/22 14:15: PT 13.1, INR 1.0, APTT 27.8 02/03/22 16:25: Troponin I High Sens 40 02/03/22 20:35: Troponin I High Sens 291 H* 02/03/22 23:10: Troponin I High Sens 449 H* 02/04/22 04:42: Troponin I High Sens 674 H* Cardiology Labs/Tests 02/03/22 14:15: WBC 7.6, RBC 4.91, Hgb 15.0, Hct 44.2, MCV 90.0, MCH 30.5, MCHC 33.9, Plt Count 338, MPV 9.0, Immature Gran % (Auto) 0.300, Neut % (Auto) 62.3, Lymph % (Auto) 27.0, [place] % (Auto) 7.6, Eos % (Auto) 2.0, Baso % (Auto) 0.8, Absolute Neuts (auto) 4.7, Nucleated RBC % 0 02/03/22 14:15: Sodium 139, Potassium 4.0, Chloride 106, Carbon Dioxide 28.0, Anion Gap 5, BUN 14, Creatinine 0.96, Est GFR (MDRD) Af Amer 109, Est GFR (MDRD) Non-Af 90, BUN/Creatinine Ratio 14.5, Glucose 123 H, Calcium 9.1 02/03/22 14:15: PT 13.1, INR 1.0, APTT 27.8 Radiography Diagnostic Testing: Radiology Impression Chest X-Ray 02/03/22 14:40 IMPRESSION: Subsegmental atelectatic streaks in the left lower lung field, no evidence of focal consolidation or infiltrate Electronically Signed: Mickey Manriquez MD at 15:03 EDT Reading Location ID and State: [facility] / [place] Tel , Service support , Documented by User: Dr. Aron Morales MD 02/04/22 17:53 Assessment & Plan Assessment/Plan (1) History of coronary artery stent placement: (2) Non-compliance: (3) NSTEMI (non-ST elevated myocardial infarction): PLAN: I independently reviewed the clinical data, cardiac monitors, evaluated the patient with cardiac catheterization and formulated The care plan As per midlevel documentation. Cardiac catheterization revealed occluded mid LAD stent patency of POLLOCK to LAD and occluded RCA with patent SVG to distal RCA and nonobstructive atherosclerosis of the left circumflex Decision was made to treat the patient medically with no further cardiac intervention. Patient will be set up to follow-up with his primary geospatial scientist Dr. Garcia HPI Consult Data Date of Consult: 02/04/22 [facility] Medical History (Updated 02/04/22 @ 11:09 by Adrianna MI, PA) Acute ST elevation myocardial infarction (STEMI) of inferior wall (02/22/21) Anxiety Atherosclerotic heart disease of [place] coronary artery without angina pectoris Depression Ischemic cardiomyopathy NSTEMI (non-ST elevated myocardial infarction) Substance abuse Home Medications aspirin 81 mg PO DAILY 30 Days #30 tab 02/04/22 [Rx Last Taken Unknown] atorvastatin 40 mg PO DAILY 30 Days #30 tab 02/04/22 [Rx Last Taken Unknown] carvedilol 3.125 mg PO BID #60 tab 02/04/22 [Rx Last Taken Unknown] clopidogrel [Plavix] 75 mg PO DAILY 30 Days #30 tab 02/04/22 [Rx Last Taken Unknown] Allergy/AdvReac Type Severity Reaction Status Date / Time No Known Allergies Allergy Verified 02/03/22 13:48 Family History (Updated 02/03/22 @ 18:19 by Elisha Castillo LEARNING AND DEVELOPMENT ASSOCIATE, LEARNING AND DEVELOPMENT ASSOCIATE-C) Mother No cardiac disease Father No cardiac disease Surgical History (Reviewed 02/03/22 @ 18:19 by Elisha Jonathan LEARNING AND DEVELOPMENT ASSOCIATE, LEARNING AND DEVELOPMENT ASSOCIATE-C) History of coronary artery stent placement (02/22/21) Social History (Updated 02/03/22 @ 18:20 by Elisha Castillo NP, LEARNING AND DEVELOPMENT ASSOCIATE-C) household members: none Smoking Status: Light Smoker (<10/day) alcohol intake: former substance use type: other details: clean one year Lab / Micro Data Result Diagrams: 02/03/22 14:15 02/03/22 14:15
--- NOTE | 2022-02-04 09:48 | CASEMGMT ---
Tertiary facilities in-network with patient's insurance: [facility], [facility], [facility] , , [facility].
--- NOTE | 2022-02-04 11:00 | ECHOD_ITS ---
Reason For Study: NSTEMI Procedure This was a 2D Doppler, Color Flow transthoracic echocardiogram. Exam performed portable in patient room. Left Ventricle Mildly dilated left ventricle. The estimated ejection fraction is 50-55 %. Right Ventricle Normal right ventricle. Atria Normal left atrium. Mitral Valve The mitral valve is structurally normal. No prolapse or stenosis seen. No mitral valve insufficiency. Tricuspid Valve Normal tricuspid valve. No tricuspid valve insufficiency. Aortic Valve Normal aortic valve. Pulmonic Valve The pulmonic valve is not well visualized. Great Vessels Normal aortic root. Pericardium/Pleural No pericardial effusion. MMode/2D Measurements & Calculations LVIDd: 4.2 cm IVSd: 1.0 cm Ao root diam: 3.7 cm LVIDs: 2.8 cm LVPWd: 1.0 cm RVDd: 3.8 cm FS: 32.6 % LAV(MOD-bp): 58.1 ml LVAd ap4: 34.6 cm2 LVAd ap2: 33.8 cm2 LAV(MOD-bp) Indexed: 25.7 ml/m2 LVLd ap4: 8.4 cm LVLd ap2: 8.7 cm LAV(MOD-sp2): 52.8 ml EDV(MOD-sp4): 122.2 ml EDV(MOD-sp2): 114.7 ml LAV(MOD-sp4): 47.5 ml EDV(sp4-el): 120.6 ml EDV(sp2-el): 111.7 ml LVAs ap4: 21.8 cm2 LVAs ap2: 19.8 cm2 LVLs ap4: 7.3 cm LVLs ap2: 7.3 cm ESV(MOD-sp4): 56.7 ml ESV(MOD-sp2): 46.5 ml ESV(sp4-el): 55.4 ml ESV(sp2-el): 45.4 ml EF(MOD-sp4): 53.6 % EF(MOD-sp2): 59.5 % EF(sp4-el): 54.0 % SV(MOD-sp4): 65.5 ml SV(MOD-sp2): 68.2 ml SV(sp4-el): 65.2 ml LA dimension(2D): 3.5 cm LA A4 area: 18.4 cm2 RA A4 area: 16.4 cm2 Doppler Measurements & Calculations MV E max rob: 72.9 cm/sec Lat Peak E' Rob: 14.5 cm/sec Med Peak E' Rob: 9.9 cm/sec MV A max rob: 58.2 cm/sec E/E' lat: 5.0 E/E' med: 7.4 MV E/A: 1.3 Ao V2 max: 122.8 cm/sec LV V1 max: 118.5 cm/sec PA V2 max: 79.9 cm/sec Ao max P.0 mmHg LV V1 max P.6 mmHg ECHO/Echo Complete Interpretation Summary The estimated ejection fraction is 50-55 %. Mild inferobasal Hypokinesia Ef improving in comparison to previous Echo Ordering Physician: Adrianna Bhardwaj Referring Physician: Camacho [place] Performed By: Bailey Mane RDCS
--- NOTE | 2022-02-04 11:12 | PCM.PN.HOSP ---
Documented by User: Elisha Castillo DAMAGED FREIGHT INSPECTOR, DAMAGED FREIGHT INSPECTOR-C 02/04/22 11:17 Subjective Subjective Patient seen and examined. Denies further chest pain overnight. Plan for heart cath and echo per cardiology. Discussed plan of care with patient. He denies other symptoms or complaints. Objective Data Objective Data Vital Signs: Vital Signs Temp Pulse Resp BP Pulse Ox 97.7 F L 68 16 110/76 95 02/04/22 07:44 02/04/22 07:44 02/04/22 07:44 02/04/22 07:44 02/04/22 07:44 Oxygen Delivery Method Room Air Weight: 219 lb 12.814 oz Body Mass Index (BMI) 28.2 Lab / Micro Data Result Diagrams: 02/03/22 14:15 02/03/22 14:15 Labs: Laboratory Results - last 24 hr 02/03/22 14:15: WBC 7.6, RBC 4.91, Hgb 15.0, Hct 44.2, MCV 90.0, MCH 30.5, MCHC 33.9, RDW Std Deviation 43.6, RDW Coeff of Laury 13.2, Plt Count 338, MPV 9.0, Immature Gran % (Auto) 0.300, Neut % (Auto) 62.3, Lymph % (Auto) 27.0, Simpson % (Auto) 7.6, Eos % (Auto) 2.0, Baso % (Auto) 0.8, Absolute Neuts (auto) 4.7, Absolute Lymphs (auto) 2.05, Nucleated RBC % 0 02/03/22 14:15: Sodium 139, Potassium 4.0, Chloride 106, Carbon Dioxide 28.0, Anion Gap 5, BUN 14, Creatinine 0.96, Estim Creat Clear Calc 115.36, Est GFR (MDRD) Af Amer 109, Est GFR (MDRD) Non-Af 90, BUN/Creatinine Ratio 14.5, Glucose 123 H, Calcium 9.1, Troponin I High Sens 5 02/03/22 14:15: PT 13.1, INR 1.0, APTT 27.8 02/03/22 16:25: Troponin I High Sens 40 02/03/22 20:35: Troponin I High Sens 291 H* 02/03/22 23:10: Troponin I High Sens 449 H* 02/04/22 04:42: Troponin I High Sens 674 H* Radiography Diagnostic Testing: Radiology Impression Chest X-Ray 02/03/22 14:40 IMPRESSION: Subsegmental atelectatic streaks in the left lower lung field, no evidence of focal consolidation or infiltrate Electronically Signed: Mickey Manriquez MD at 15:03 EDT Reading Location ID and State: [address] [place] [address] Tel , Service support , Physical Exam Const alert, oriented x3 and no apparent distress Orientation / Consciousness: awake, oriented to person, oriented to place and oriented to time HEENT normocephalic and moist oral mucous membranes Eyes PERRL, EOMs intact bilaterally and conjunctivae normal Neck no lymphadenopathy Resp normal respiratory effort and clear to auscultation bilaterally Cardio regular rate, regular rhythm and no murmurs Peripheral Pulses: pulses 2+ throughout GI normal to inspection, nondistended, normoactive bowel sounds, non-tender and non-distended Extremity normal to inspection Skin no rashes or lesions noted Lesions: no lesions Rashes: no rashes Trauma: no lacerations or abrasions Neuro CN's II-XII intact bilaterally, no focal motor deficits, no sensory deficits noted and deep tendon reflexes 2+ bilaterally Psych mental status grossly normal and affect normal Assessment & Plan Assessment/Plan (1) NSTEMI (non-ST elevated myocardial infarction): PLAN: 1. NSTEMI/Chest pain-EKG without acute ST-T changes. Cardiology consulted. Initial troponin negative however subsequent troponin significantly elevated with peak 674. Plan for heart cath and echo. Continue aspirin, Plavix, statin. 2. CAD with history of PCI/ischemic cardiomyopathy- stopped all cardiac meds 6 months ago. Continue aspirin, Plavix, statin. Plan for heart cath as noted above. 3. Tobacco dependence-currently vaping. Encourage cessation. 4. Depression-not on regimen. 5. History of polysubstance abuse-states clean/sober for 1 year. DVT prophylaxis-Lovenox subcu This patient was seen by FRANSISCO Perez under the supervision of Dr. Alan. Time spent examining patient, reviewing data and subsequent management of care: 12 minutes Documented by User: Dr. Anna Marie Alan MD 02/04/22 15:35 Objective Data Lab / Micro Data Result Diagrams: 02/03/22 14:15 02/03/22 14:15 Charges/Coding Visit Charges Inpatient E&M: 85417 Subs Hosp L2
--- NOTE | 2022-02-04 11:22 | PRO.PCM_ITS ---
Procedure Report Date of Procedure: 02/04/22 Procedure report; 1. Moderate sedation 2. Selective (negative for 3. Selective right coronary angiography. 4. Placement of TR band closure right radial artery arteriotomy site. Preprocedure diagnosis; This is a 41-year-old patient who had a history of CAD with inferior myocardial infarction in February 2021 At that time patient had a PCI and stent to the RCA distal RCA using 3 x 26 mm drug-eluting stent Mid RCA 3.5 x 15 mm eluting stent postdilated using 4mm NC balloon At this time he presented with symptoms of chest pain Patient had a history of hypertension Evidently he was not continued on his dual antiplatelet therapy.. Patient is resident of [place] and he was incarcerated now he lives in [place]. Consent; Risk and benefit of procedure explained detail patient like to proceed informed consent obtained. Diagnostic catheter used used to catheter #1 5 Taiwanese [place] catheter 2. 5 Taiwanese JR R4 diagnostic catheter Procedure in detail; Patient brought to the [employer] in fasting state Right radial artery area prepped and draped in the usual sterile fashion. Access obtained from the right radial artery with placement of 6 Taiwanese Terumo sheath Then we will proceed with the regular 0.035 diagnostic wire with the 5 Taiwanese [place] catheter advanced to the ascending Luis Alberto and cannulated the left main without difficulty Following this catheter exchanged for 5 Taiwanese JR 4 catheter and cannulated the right coronary artery and multiple views of post left and right coronary artery obtained including GEORGE, CHANDRA cranial and caudal views and spider view which is the GEORGE caudal view. Following this all angiographic views were studied. Findings; 1 left main is normal angiographically bifurcating into LAD and left circumflex 2. LAD large vessel reaches to the apex Has a prominent D1, diagonal branch and abundant septal branches angiographically there is no obstructive atherosclerosis noted in the left main or the left anterior descending 3. The left circumflex had 2 highly OM branches OM1 and OM 2 had diffuse nonobstructive sclerosis the circumflex is a large vessel. 4. Right coronary artery large dominant with patency of the mid RCA and distal RCA stents. With no significant obstructive atherosclerosis The ostium of the RPDA had nonobstructive sclerosis of around 30 to 40% Conclusion; This patient presented with symptoms of chest pain with elevated cardiac biomarkers troponins treated with medical therapy Recommendation; Medical treatment 1. To continue on DAPT, Plavix 75 mg in addition to low-dose aspirin 81 mg for 1 year 2. Continue rest of the cardiac medication 3. Patient to follow-up with cardiology clinic here at [facility] cardiac team. No complication the [employer] Aron Morales MD,FACC,[facility]
--- NOTE | 2022-02-04 12:31 | PCM.DC ---
Discharge Instructions Diet Discharge Diet: Low fat / Low cholesterol and 2000 mg Sodium Diet Activity Discharge Activity: Return to Normal Activity Additional Activity Instructions:: follow post cath instructions Dressing / Incision Call your doctor if your incision/area has: Continuous Slow Oozing, Sudden Increased Bleeding, Increased Pain/ Swelling, Increased Redness, Foul Smelling Discharge and Swelling at the incision site Call your doctor if you observe: Shortness of breath, Dizziness and Chest pain Follow Up Care Test Results: Test results from this visit will be discussed in further detail at your follow-up appointment, if applicable. Discharge Plan Admission Admit Date/Time: 02/03/22 20:35 Primary Reason for Your Visit: Chest pain Attending Provider: Anna Marie Alan Primary Care Provider: Camacho England Consulting Providers: Aron Morales Discharge Orders/Prescriptions Prescriptions: New carvedilol 3.125 mg tablet 3.125 mg PO BID Qty: 60 RF: 0 Continued aspirin 81 mg tablet,chewable 81 mg PO DAILY 30 Days Qty: 30 RF: 0 atorvastatin 40 mg tablet 40 mg PO DAILY 30 Days Qty: 30 RF: 0 Changed clopidogrel [Plavix] 75 mg tablet 75 mg PO DAILY 30 Days Qty: 30 RF: 0 Referrals / Follow Up: Camacho England DO [Primary Care Provider] - In 1 Week Adrianna Bhardwaj PA [PHYSICIAN CASHIER CLERK] - Within 2 Weeks Disposition Disposition (needs filled in before D/C Order can be placed): Home, Self Care
--- NOTE | 2022-02-04 12:42 | DS.PCM_ITS ---
Documented by User: Elisha Castillo NP, EXTERNAL GRINDER-C 02/04/22 12:47 Providers Date of Admission: 02/03/22 Date of Discharge: 02/04/22 Primary Care Physician: Dr. Camacho England, Consultations 02/03/22 20:56 Consult: Cardiology Routine Consulting Provider: Aron Morales Reason for Consult: chest pain EMERGENT Consult: No MD Notified: Yes Date Notified: 02/03/22 Time Notified: 20:56 Method of Notification: md to md Method of Consult:: In-Person Reason For Visit: CHEST PAIN Diagnosis Discharge Diagnosis (1) Elevated troponin: Status: Acute Code(s): R77.8 - Other specified abnormalities of plasma proteins (2) Atherosclerotic heart disease of [place] coronary artery without angina pectoris: Status: Acute Code(s): I25.10 - Atherosclerotic heart disease of [place] coronary artery without angina pectoris (3) History of coronary artery stent placement: Status: Acute Code(s): Z95.5 - Presence of coronary angioplasty implant and graft (4) Ischemic cardiomyopathy: Status: Chronic Code(s): I25.5 - Ischemic cardiomyopathy (5) NSTEMI (non-ST elevated myocardial infarction): Status: Acute Code(s): I21.4 - Non-ST elevation (NSTEMI) myocardial infarction Medications at Discharge Home Medications aspirin 81 mg PO DAILY 30 Days #30 tab 02/04/22 atorvastatin 40 mg PO DAILY 30 Days #30 tab 02/04/22 carvedilol 3.125 mg PO BID #60 tab 02/04/22 clopidogrel [Plavix] 75 mg PO DAILY 30 Days #30 tab 02/04/22 Hospital Course Operations None Procedures 2-D Echocardiogram and Cardiac catheterization Summary of Care Provided Hospital Course: Patient is a 41-year-old male admitted 02/03/22 due to chest pain. 1. NSTEMI/Chest pain-EKG without acute ST-T changes. Cardiology consulted. Initial troponin negative however subsequent troponin significantly elevated with peak 674. Patient underwent heart cath which demonstrated patent prior RCA stents. Nonobstructive CAD/sclerosis. Continue medical management. Echocardiogram completed, report pending and will be reviewed prior to discharge. Continue aspirin, Plavix, statin. Initiated on carvedilol 3.125 mg twice daily. Follow-up with cardiology in 2 weeks. 2. CAD with history of PCI/ischemic cardiomyopathy- stopped all cardiac meds 6 months ago. Continue aspirin, Plavix, statin. Initiated on low-dose carvedilol. Follow-up with cardiology as noted above. 3. Tobacco dependence-currently vaping. Encourage cessation. 4. Depression-not on regimen. 5. History of polysubstance abuse-states clean/sober for 1 year. Physical Exam Const alert, oriented x3 and no apparent distress Orientation / Consciousness: awake, oriented to person, oriented to place and oriented to time HEENT normocephalic and moist oral mucous membranes Eyes PERRL, EOMs intact bilaterally and conjunctivae normal Neck no lymphadenopathy Resp normal respiratory effort and clear to auscultation bilaterally Cardio regular rate, regular rhythm and no murmurs Peripheral Pulses: pulses 2+ throughout GI normal to inspection, nondistended, normoactive bowel sounds, non-tender and non-distended Extremity normal to inspection Skin no rashes or lesions noted Lesions: no lesions Rashes: no rashes Trauma: no lacerations or abrasions Neuro CN's II-XII intact bilaterally, no focal motor deficits, no sensory deficits noted and deep tendon reflexes 2+ bilaterally Psych mental status grossly normal and affect normal Patient seen and examined prior to discharge. Physical assessment as noted above. Patient is stable for discharge with follow up recommendations as noted above. This patient was seen by FRANSISCO Perez under the supervision of Dr. Alan. Time spent examining patient, reviewing data and subsequent management of care: 16 minutes Weight / BMI Weight Weight: 219 lb 12.814 oz Body Mass Index (BMI) 28.2 ABG / Lab / Microbiology Data Result Diagrams: 02/03/22 14:15 02/03/22 14:15 Laboratory: Laboratory Results - last 24 hr 02/03/22 14:15: WBC 7.6, RBC 4.91, Hgb 15.0, Hct 44.2, MCV 90.0, MCH 30.5, MCHC 33.9, RDW Std Deviation 43.6, RDW Coeff of Laury 13.2, Plt Count 338, MPV 9.0, Immature Gran % (Auto) 0.300, Neut % (Auto) 62.3, Lymph % (Auto) 27.0, Russell % (Auto) 7.6, Eos % (Auto) 2.0, Baso % (Auto) 0.8, Absolute Neuts (auto) 4.7, Absolute Lymphs (auto) 2.05, Nucleated RBC % 0 02/03/22 14:15: Sodium 139, Potassium 4.0, Chloride 106, Carbon Dioxide 28.0, Anion Gap 5, BUN 14, Creatinine 0.96, Estim Creat Clear Calc 115.36, Est GFR (MDRD) Af Amer 109, Est GFR (MDRD) Non-Af 90, BUN/Creatinine Ratio 14.5, Glucose 123 H, Calcium 9.1, Troponin I High Sens 5 02/03/22 14:15: PT 13.1, INR 1.0, APTT 27.8 02/03/22 16:25: Troponin I High Sens 40 02/03/22 20:35: Troponin I High Sens 291 H* 02/03/22 23:10: Troponin I High Sens 449 H* 02/04/22 04:42: Troponin I High Sens 674 H* Radiography Diagnostic Testing: Radiology Impression Chest X-Ray 02/03/22 14:40 IMPRESSION: Subsegmental atelectatic streaks in the left lower lung field, no evidence of focal consolidation or infiltrate Electronically Signed: Mickey Manriquez MD at 15:03 EDT Reading Location ID and State: [facility] / [place] Tel , Service support , D/C Instructions Discharge Diet: Low fat / Low cholesterol and 2000 mg Sodium Diet Additional Activity Instructions: follow post cath instructions Call your doctor if your incision/area has: Continuous Slow Oozing, Sudden Increased Bleeding, Increased Pain/ Swelling, Increased Redness, Foul Smelling Discharge and Swelling at the incision site Call your doctor if you observe: Shortness of breath, Dizziness and Chest pain Meaningful Use Info Meaningful Use Diagnoses (Choose all that apply): AMI AMI/Post PCI/Angioplasty Aspirin given w/in 24hrs of arrival?: Yes ASA at discharge?: Yes Statins at discharge?: Yes Pop/ARB at discharge?: No Reason Pop/ARB not ordered:: Hypotension Beta [place] at discharge?: Yes Done w/ Acute AR measure.: Yes Discharge Plan Admission Admit Date/Time: 02/03/22 20:35 Primary Reason for Your Visit: Chest pain Attending Provider: Anna Marie Alan Primary Care Provider: Camacho England Consulting Providers: Aron Morales Discharge Orders/Prescriptions Prescriptions: New carvedilol 3.125 mg tablet 3.125 mg PO BID Qty: 60 RF: 0 Continued aspirin 81 mg tablet,chewable 81 mg PO DAILY 30 Days Qty: 30 RF: 0 atorvastatin 40 mg tablet 40 mg PO DAILY 30 Days Qty: 30 RF: 0 Changed clopidogrel [Plavix] 75 mg tablet 75 mg PO DAILY 30 Days Qty: 30 RF: 0 Referrals / Follow Up: Camacho England DO [Primary Care Provider] - In 1 Week Adrianna Bhardwaj PA [PHYSICIAN SPECIAL SERVICES COORDINATOR] - 03/15/22 9:30 am Disposition Disposition (needs filled in before D/C Order can be placed): Home, Self Care Documented by User: Dr. Anna Marie Alan MD 02/04/22 15:35 Providers Date of Admission: 02/03/22 Reason For Visit: CHEST PAIN Medications at Discharge Home Medications aspirin 81 mg PO DAILY 30 Days #30 tab 02/04/22 atorvastatin 40 mg PO DAILY 30 Days #30 tab 02/04/22 carvedilol 3.125 mg PO BID #60 tab 02/04/22 clopidogrel [Plavix] 75 mg PO DAILY 30 Days #30 tab 02/04/22 ABG / Lab / Microbiology Data Result Diagrams: 02/03/22 14:15 02/03/22 14:15 Discharge Plan Admission Admit Date/Time: 02/03/22 20:35 Primary Reason for Your Visit: Chest pain Attending Provider: Anna Marie Alan Primary Care Provider: Camacho England Consulting Providers: Aron Morales Discharge Orders/Prescriptions Prescriptions: New carvedilol 3.125 mg tablet 3.125 mg PO BID Qty: 60 RF: 0 Continued aspirin 81 mg tablet,chewable 81 mg PO DAILY 30 Days Qty: 30 RF: 0 atorvastatin 40 mg tablet 40 mg PO DAILY 30 Days Qty: 30 RF: 0 Changed clopidogrel [Plavix] 75 mg tablet 75 mg PO DAILY 30 Days Qty: 30 RF: 0 Referrals / Follow Up: Camacho England DO [Primary Care Provider] - In 1 Week Adrianna Bhardwaj PA [PHYSICIAN SPECIAL SERVICES COORDINATOR] - 03/15/22 9:30 am Disposition Disposition (needs filled in before D/C Order can be placed): Home, Self Care Charges/Coding Addendum Addendum: Patient seen by Elisha MOODY under my supervision Patient is a 41-year-old male who was admitted with a complaint of chest pain. He had a history of CAD s/p stents in 2020 and said he had not taken his dual antiplatelet and cardiac medications for about 6 months because he thought he was getting better. On admission he was found to have elevated troponins which trended upwards and he was diagnosed with a non-STEMI. Cardiology was consulted. O/E: Const alert, oriented x3 and no apparent distress General Appearance: cooperative HEENT normocephalic, head/scalp atraumatic, hearing grossly normal bilaterally and moist oral mucous membranes Eyes PERRL, EOMs intact bilaterally and conjunctivae normal Neck no lymphadenopathy, supple and no JVD Resp normal respiratory effort and clear to auscultation bilaterally Cardio regular rate, regular rhythm, S1 normal heart sound, S2 normal heart sound and no murmurs GI normal to inspection, nondistended, normoactive bowel sounds and soft to palpation Extremity normal to inspection, full ROM and no clubbing, cyanosis or edema Skin no rashes or lesions noted Neuro oriented x3, CN's II-XII intact bilaterally and moves all extremities Sensorium / Orientation: awake and alert Psych affect normal He had cardiac cath which showed no evidence of hemodynamically significant obstructive atherosclerosis. Plan was for medical management and to continue dual antiplatelet therapy and the rest of his cardiac medications. He remained stable and was discharged home on 02/04/2022. He was counseled to be compliant with his medications, and to follow up with PCP and director of quality in 1-2 weeks. Patient ws seen and examined prior to discharge. Rest as per Elisha MOODY's note, which I have reviewed and endorsed. Total time I spent on clinical care of patient: 25 mins, with Elisha Castillo spending 16 mins, making a total of 41 mins. Visit Charges Inpatient E&M: 43238 Disch Hosp
--- NOTE | 2022-02-04 13:00 | CASEMGMT ---
RN YOSELIN Face to Face with patient for initial transition planning/care coordination assessment. RN CM introduced self and role at [facility]. Patient lying in bed, alert and oriented. Patient willing to participate in assessment and is able to answer all questions appropriately. Care providers, pharmacy, and demographics verified. Patient wishes to discharge home, denies need for home health at this time. Patient states he has no further needs or concerns at this time. CM to follow for discharge planning needs that may arise. PCP: Tomás Specialists: none Preferred Pharmacy: [facility] Insurance: [facility] Prescription Benefit: yes Living Will/HPOA: none LNOK: Living Arrangements: Patient lives with in a 2 story home with bed and bath on first floor. Patient states he is independent at home and able to ambulate stairs. Transportation: self, DME/HHC: Patient denies DME or previous HHC. Disposition Plan: Patient to discharge home with family support and follow-up plans in place. Heidy RUSSELL, RN, CM
--- NOTE | 2022-02-04 14:27 | PHA.DC.MC ---
Pharmacy Service has performed discharge medication reconciliation and counseling for this patient. 1. ASPIRIN 81MG PO DAILY 2. ATORVASTATIN 40MG PO DAILY 3. CARVEDILOL 3.125MG PO BIDCM 4. CLOPIDOGREL 75MG PO DAILY The patient's discharge medication list was reviewed for discrepancies and discrepancies were resolved. Home Medications aspirin 81 mg PO DAILY 30 Days #30 tab 02/04/22 atorvastatin 40 mg PO DAILY 30 Days #30 tab 02/04/22 carvedilol 3.125 mg PO BID #60 tab 02/04/22 clopidogrel [Plavix] 75 mg PO DAILY 30 Days #30 tab 02/04/22 The patient was counseled on the following discharge medications and changes in medications for homegoing were reviewed. The Reason for Use, instructions for use, and potential side effects were reviewed for all new medications. The patient's questions regarding all of their medications were answered. The patient was able to verbally demonstrate an understanding of their discharge medications.
== END 2022-02-04 15:11 | disposition home or self-care (01) | DRG 190 ==
LOC: ED 17:37 → PCU 18:24
PROVIDERS: Family Medicine; Nurse Practitioner; Admitting Provider Internal Medicine; Emergency Provider Emergency Medicine; PCP Family Medicine; Visit Provider Student in an Organized Health Care Education/Training Program
DX: I21.4 Non-ST elevation (NSTEMI) myocardial infarction (principal); F17.200 Nicotine dependence, unspecified, uncomplicated; I25.10 Atherosclerotic heart disease of native coronary artery without angina pectoris; I25.5 Ischemic cardiomyopathy; Z79.02 Long term (current) use of antithrombotics/antiplatelets; Z91.19 Patient's noncompliance with other medical treatment and regimen; Z79.82 Long term (current) use of aspirin; F32.A Depression, unspecified; Z95.5 Presence of coronary angioplasty implant and graft; R77.8 Other specified abnormalities of plasma proteins; R94.31 Abnormal electrocardiogram [ECG] [EKG]
CPT/HCPCS: 36415; 71045; 80048; 84484; 85025; 85610; 85730; 93005; 93306; 93454; 99152; 99153; 99285; 99406; A4216; C1769; C1894; Q9967

== ENCOUNTER 2022-04-15 21:07 | Emergency (ER) | payer MEDICAID, SELFPAY ==
[2022-04-15 21:09] VITALS: BP 116/88; PULSE 102; RESP 15; TEMP 36.4; O2SAT 99; BMI 29.5
--- NOTE | 2022-04-15 21:12 | EKG12_ITS ---
Test Reason : CP Blood Pressure : / mmHG Vent. Rate : 099 BPM Atrial Rate : 099 BPM P-R Int : 148 ms QRS Dur : 088 ms QT Int : 360 ms P-R-T Axes : 044 001 007 degrees QTc Int : 462 ms Sinus rhythm with occasional Premature ventricular complexes Otherwise normal ECG Confirmed by DEE DAVIDSON, JAZZ ([id number]), online editor PARUL BANKS ([id number]) on 04/19/2022 10:06:14 AM Referred By: MALIK Confirmed By:JAZZ PRICE MD
[2022-04-15 21:48] LABS: Absolute Lymphocyte Count 1.36 X10^3/uL (0.83-4.51); Absolute Neutrophil Count 2.1 X10^3/uL (2.0-7.7); Basophil# 0.01 X10^3/uL; Basophil% 0.2 % (0-1); Eosinophil# 0.06 X10^3/uL; Eosinophils% 1.5 % (0-5); Hematocrit 42.3 % (40-54); Hemoglobin 14.7 g/dL (13.0-16.5); Lymphocyte # 1.36 X10^3/ul (0.83-4.51); Lymphocyte % 33.5 % (19-41); Mean Corp Hgb Conc 34.8 g/dL (32-36); Mean Corpuscular Hgb 30.8 pg (27.0-32.0); Mean Corpuscular Volume 88.7 fL (80-94); Monocyte# 0.55 X10^3/uL; Monocyte% 13.5 % (0-10); NRBC Flagged by Analyzer 0 % (0-5); Neutrophil # 2.08 X10^3/uL (2.7-7.7); Neutrophil % 51.3 % (47-70); Platelet Count 340 K/mm3 (150-450); RBC Distribution Width CV 13.6 % (11.6-14.6); RBC Distribution Width SD 44.7 fl (35.1-43.9); Red Blood Count 4.77 M/mm3 (4.6-6.2); White Blood Count 4.1 K/mm3 (4.4-11.0)
[2022-04-15 21:51] VITALS: BP 113/86; PULSE 92; RESP 18; O2SAT 97
--- NOTE | 2022-04-15 21:52 | RAD_ITS ---
INDICATION: chest pain -- in triage EXAMINATION/TECHNIQUE: X-RAY - XR Chest 1 View COMPARISON: 02/03/2022 FINDINGS: LINES/DEVICES: None. LUNGS: Platelike atelectasis in the left lower lung field, similar compared to the prior. No consolidation, edema or effusion. No pneumothorax. MEDIASTINUM AND CARDIOVASCULAR STRUCTURES: Cardiac silhouette not enlarged. Central airways and mediastinal contour are unremarkable. BONES AND SOFT TISSUES: Unremarkable. RAD/Chest 1 View (Portable) IMPRESSION: No acute cardiopulmonary disease. Electronically Signed: Juan Manuel Benjamin MD at 22:06 EDT ,
[2022-04-15 21:59] LABS: Anion Gap 8 (5-15); BUN 14 mg/dL (7-18); Calcium,Total 8.6 mg/dL (8.5-10.1); Chloride 107 mmol/L (98-107); Creatinine, Serum 0.88 mg/dL (0.70-1.30); EST Glomerular Filtration Rate 101 mL/min (>60); Est Glom Filt Rate - Afr Amer 122 mL/min (>60); Estimated Creatinine Clearance 124.55 ml/min; Glucose 106 mg/dL (74-106); Potassium 3.5 mmol/L (3.5-5.1); Sodium Level 138 mmol/L (136-145); Troponin-I HS 6 pg/mL (3.0-78.0)
[2022-04-15 22:41] VITALS: BP 104/76; PULSE 83; RESP 18; O2SAT 100
[2022-04-15] MEDS: 0.9% Normal Saline 1,000 ML 999 ML IV (22:41)
--- NOTE | 2022-04-15 22:54 | EDS_ITS ---
HPI History of Present Illness Chief Complaint: Chest Pain Narrative Narrative: Patient is a 42-year-old male with past medical history of CAD with previous stent placement. He states 3 days ago he developed bouts of nausea and vomiting and has had loose stool/diarrhea since that time. He reports that after he had bouts of vomiting he noticed some pain in his left shoulder blade. He states the pain in his shoulder is more sharp and stabbing and will come and go. He denies any radiation of the pain he denies any shortness of breath or diaphoresis associated with this. He states however when he had his previous heart issues 1 to 2 years ago he also had shoulder pain at that time and is concerned and therefore comes in for evaluation. [facility] Medical History Acute ST elevation myocardial infarction (STEMI) of inferior wall (02/22/21) Anxiety Atherosclerotic heart disease of [place] coronary artery without angina pectoris Depression Hyperlipemia Ischemic cardiomyopathy Nicotine dependence NSTEMI (non-ST elevated myocardial infarction) Substance abuse Home Medications aspirin 81 mg chewable tablet 81 mg PO DAILY #90 tabs 03/15/22 [Rx Last Taken Unknown] atorvastatin 40 mg tablet 40 mg PO DAILY #90 tabs 03/15/22 [Rx Last Taken Unknown] carvedilol 3.125 mg tablet 3.125 mg PO BID #180 tabs 03/15/22 [Rx Last Taken Unknown] clopidogrel 75 mg tablet (Plavix) 75 mg PO DAILY #90 tabs 03/15/22 [Rx Last Taken Unknown] Allergy/AdvReac Type Severity Reaction Status Date / Time No Known Allergies Allergy Verified 04/15/22 21:09 Family History Mother No cardiac disease Father No cardiac disease Surgical History History of coronary artery stent placement (02/22/21) History of left heart catheterization (02/04/22) Social History household members: none Smoking Status: Former smoker Electronic Cigarette Use: with nicotine alcohol intake: former substance use type: former substance user Date of last use: January, heroin, opiates, methamphetamine and other details: fentanyl caffeine: Yes Type: carbonated beverages Number of servings: 2 and coffee Number of servings: 1 ROS ROS ED Constitutional Constitutional ED: Denies chills or fever(s) ENT ENT ED: Denies sore throat Cardiovascular Cardiovascular: Denies chest pain Respiratory/Chest Respiratory/Chest: Denies cough or dyspnea Gastrointestinal Gastrointestinal: Reports diarrhea, nausea and vomiting; Denies abdominal pain Genitourinary Genitourinary ED: Denies dysuria Musculoskeletal Musculoskeletal: Reports other Details: Positive intermittent left shoulder blade pain ; Denies myalgias Integumentary Denies rash Neurologic Neurologic: Denies headache(s) Hematologic/Lymphatic Hematologic/Lymphatic: Reports easy bleeding and easy bruising EXAM Physical Exam Const Vital Signs: 04/15/22 21:09 04/15/22 21:51 04/15/22 21:51 Temperature 97.6 F L Temperature Source Temporal Pulse Rate 102 H 92 Respiratory Rate 15 18 Respiratory Effort Blood Pressure 116/88 H 113/86 H Blood Pressure Mean 97 95 Pulse Ox 99 97 Oxygen Delivery Method Room Air Room Air Room Air 04/15/22 21:52 04/15/22 22:41 Temperature Temperature Source Pulse Rate 83 Respiratory Rate 18 Respiratory Effort Normal Non-Labored Blood Pressure 104/76 Blood Pressure Mean 85 Pulse Ox 100 Oxygen Delivery Method Room Air Positive well nourished and well developed General Appearance ED: well developed HEENT Reports moist mucous membranes Eyes PERRL and EOMs intact bilaterally Neck supple Chest Wall palpation of chest normal Resp normal respiratory effort and clear to auscultation bilaterally Cardio regular rate and regular rhythm Rate: other Other Details: Radial pulses are plus 2 out of 4 bilaterally are equal and symmetric GI normal to inspection, nondistended, normoactive bowel sounds, non-tender and non-distended GI Narrative: No voluntary guarding or rigidity no pulsatile mass Auscultation: normoactive bowel sounds Palpation: soft Back/Spine Back/Spine Narrative: There is pain with palpation and mild spasm of the left upper shoulder blade that is similar to the pain the patient's been experiencing Extremity normal to inspection Extremity Narrative: No asymmetric edema no pitting edema negative Homans' sign bilaterally Neuro oriented x3 and CN's II-XII intact bilaterally Sensorium / Orientation: alert Psych Psych Narrative: Nervous/anxious affect Skin no rashes or lesions noted MDM MDM MDM Narrative Medical decision making narrative: Patient presented to the ER slightly tachycardic but otherwise afebrile with stable blood pressure and in no acute respiratory distress. His exam and constellation of symptoms are most consistent with a viral stomach infection a muscular strain. However as he has had cardiac event in the past a basic work- up was obtained. His blood work revealed no clinically significant findings with an initial troponin of 6 and a delta decreasing down to 4. Chest x-ray revealed no acute lung pathology. Patient was given IV hydration and reported feeling better after this. Aspirin was not provided as he took it at home. Therefore this time as patient's EKG is sinus vital stable and his troponin is downtrending I do not feel there is need for admission or further work-up and he is otherwise safe for discharge. Lab Data Attestation: I reviewed the patient's lab results. Labs: Laboratory Results - last 24 hr 04/15/22 04/15/22 04/15/22 21:31 21:31 23:55 WBC 4.1 L RBC 4.77 Hgb 14.7 Hct 42.3 MCV 88.7 MCH 30.8 MCHC 34.8 RDW Std Deviation 44.7 H RDW Coeff of Laury 13.6 Plt Count 340 MPV 9.0 Immature Gran % (Auto) 0.000 Neut % (Auto) 51.3 Lymph % (Auto) 33.5 [place] % (Auto) 13.5 H Eos % (Auto) 1.5 Baso % (Auto) 0.2 Absolute Neuts (auto) 2.1 Absolute Lymphs (auto) 1.36 Nucleated RBC % 0 Sodium 138 Potassium 3.5 Chloride 107 Carbon Dioxide 23.0 Anion Gap 8 BUN 14 Creatinine 0.88 Estim Creat Clear Calc 124.55 Est GFR (MDRD) Af Amer 122 Est GFR (MDRD) Non-Af 101 BUN/Creatinine Ratio 16.0 Glucose 106 Calcium 8.6 Troponin I High Sens 6 4 Radiography Diagnostic Testing: Clinical Impression(s) from Imaging Studies Chest X-Ray 04/15/22 21:52 IMPRESSION: No acute cardiopulmonary disease. Electronically Signed: Juan Manuel Benjamin MD at 22:06 EDT , Chest x-ray as interpreted by the emergency medicine physician reveals no acute infiltrate pneumothorax or pleural effusion Discharge Plan Triage Chief Complaint: Chest Pain ED Provider: Yony Connelly Dx/Rx/DC Orders Clinical Impression: Nausea vomiting and diarrhea, Musculoskeletal back pain Instructions: ED Back and Neck Pain, General, ED Gastroenteritis, Viral (Adult) Prescriptions: No Action clopidogrel [Plavix] 75 mg tablet 75 mg PO DAILY Qty: 90 3RF aspirin 81 mg tablet,chewable 81 mg PO DAILY Qty: 90 3RF atorvastatin 40 mg tablet 40 mg PO DAILY Qty: 90 3RF carvedilol 3.125 mg tablet 3.125 mg PO BID Qty: 180 3RF Rx Instructions: must administer with a meal/food Primary Care Provider: Care Physician,No Primary Referrals: Camacho Drake MD [STAFF PHYSICIAN] - 3-5 Days if not improving Care Physician,No Primary [Primary Care Provider] - Disposition Disposition: Home, Self Care
[2022-04-16 00:16] LABS: Troponin-I HS 4 pg/mL (3.0-78.0)
[2022-04-16 01:06] VITALS: BP 116/77; PULSE 80; RESP 18; O2SAT 98
== END 2022-04-16 01:08 | disposition home or self-care (01) ==
PROVIDERS: Emergency Provider Emergency Medicine; Visit Provider Emergency Medicine
DX: R11.2 Nausea with vomiting, unspecified (principal); R19.7 Diarrhea, unspecified; Z87.891 Personal history of nicotine dependence; I25.10 Atherosclerotic heart disease of native coronary artery without angina pectoris; E78.5 Hyperlipidemia, unspecified; I25.5 Ischemic cardiomyopathy; F11.90 Opioid use, unspecified, uncomplicated; M54.9 Dorsalgia, unspecified; I25.2 Old myocardial infarction
CPT/HCPCS: 71045; 80048; 84484; 85025; 93005; 99284; J7030; A4216

== ENCOUNTER 2022-05-22 07:46 | Emergency (ER) | payer MEDICAID, SELFPAY ==
[2022-05-22 07:47] VITALS: BP 124/81; PULSE 89; RESP 16; TEMP 36.6; O2SAT 96; BMI 28.0
--- NOTE | 2022-05-22 07:59 | EDS_ITS ---
HPI History of Present Illness Chief Complaint: Cold Sx Narrative Narrative: Patient presents with fevers that were subjective for the past 3 days and a sore throat, he is now noticing left eye redness. He has no shortness of breath he has a very occasional cough but not a real cough. He has no difficulty breathing, no rash. No nausea vomiting or abdominal pain. No headache, no neck pain or stiffness. PFSH PFS Medical History Acute ST elevation myocardial infarction (STEMI) of inferior wall (02/22/21) Anxiety Atherosclerotic heart disease of [place] coronary artery without angina pectoris Depression Hyperlipemia Ischemic cardiomyopathy Nicotine dependence NSTEMI (non-ST elevated myocardial infarction) Substance abuse Home Medications aspirin 81 mg chewable tablet 81 mg PO DAILY #90 tabs 03/15/22 [Rx Last Taken Unknown] atorvastatin 40 mg tablet 40 mg PO DAILY #90 tabs 03/15/22 [Rx Last Taken Unknown] carvedilol 3.125 mg tablet 3.125 mg PO BID #180 tabs 03/15/22 [Rx Last Taken Unknown] clopidogrel 75 mg tablet (Plavix) 75 mg PO DAILY #90 tabs 03/15/22 [Rx Last Taken Unknown] Allergy/AdvReac Type Severity Reaction Status Date / Time No Known Allergies Allergy Verified 05/22/22 07:48 Family History Mother No cardiac disease Father No cardiac disease Surgical History History of coronary artery stent placement (02/22/21) History of left heart catheterization (02/04/22) Social History household members: none Smoking Status: Current every day smoker tobacco type: e-cigarettes Electronic Cigarette Use: with nicotine alcohol intake: former substance use type: former substance user Date of last use: January, heroin, opiates, methamphetamine and other details: fentanyl caffeine: Yes Type: carbonated beverages Number of servings: 2 and coffee Number of servings: 1 ROS ROS ED ROS Narrative Past medical history: Reviewed Medications: Reviewed Social history: Noncontributory Review of systems: All systems negative except as indicated General: Subjective fevers Eyes: Left eye redness ENT: Sore throat as in HPI Neck: No neck pain Cardiovascular: No chest pain Respiratory: No shortness of breath. Occasional cough. Gastrointestinal: No abdominal pain, nausea vomiting or diarrhea Genitourinary: No dysuria Musculoskeletal: Denies myalgias no difficulty with ambulation Skin: No rash Neurological: No memory loss, confusion or any focal weakness Psych: No recent behavioral changes Hematologic: No easy bleeding or easy bruising EXAM Physical Exam Narrative Exam Narrative: Physical exam General: Well nourished, Well developed, he is relatively comfortable in the bed. Head: Normocephalic, Atraumatic Eyes: Left eye conjunctivitis ENT: Very slight congestion, posterior oropharynx however shows erythema with exudates. Normal soft palate and uvula no signs of peritonsillar abscess. Neck: No obvious lymphadenopathy but there is quite a bit of pain in the lymph node region. Cardiovascular: Regular rate, Regular rhythm Respiratory: No distress, CTA bilaterally Abdomen: Soft, Nontender, Nondistended Back: Nontender, Normal Inspection. Negative for: CVA tenderness Extremities: Nontender, No edema Skin: Normal color, No rash Neurological: Alert, Normal Strength, Normal Sensation Psychological: Normal affect Const Vital Signs: 05/22/22 07:47 05/22/22 07:52 Temperature 97.9 F Temperature Source Temporal Pulse Rate 89 Respiratory Rate 16 Respiratory Effort Normal Respiratory Depth Normal Respiratory Pattern Normal Blood Pressure 124/81 H Blood Pressure Mean 95 Pulse Ox 96 Oxygen Delivery Method Room Air MDM MDM MDM Narrative Medical decision making narrative: Patient likely has strep, he has exudates no real cough, fevers and pain along t he lymph node chain. I will treat him with Bicillin. He also has left eye conjunctivitis which will be treated. I will discharge him in stable condition Discharge Plan Triage Chief Complaint: Cold Sx ED Provider: Camacho Yee Dx/Rx/DC Orders Clinical Impression: Fever, Pharyngitis, Conjunctivitis Instructions: Conjunctivitis Caused by Infection, Self-Care for Sore Throats, Preventing Common Respiratory ... Prescriptions: No Action clopidogrel [Plavix] 75 mg tablet 75 mg PO DAILY Qty: 90 3RF aspirin 81 mg tablet,chewable 81 mg PO DAILY Qty: 90 3RF atorvastatin 40 mg tablet 40 mg PO DAILY Qty: 90 3RF carvedilol 3.125 mg tablet 3.125 mg PO BID Qty: 180 3RF Rx Instructions: must administer with a meal/food Primary Care Provider: Care Physician,No Primary Referrals: Charity Rowley MD [Med Staff - Receptionist Telephone Operator] - 3-5 Days Camacho Yee MD [Emergency Provider] - Care Physician,No Primary [Primary Care Provider] - Activity Restrictions/Additional Instructions: Use the bacitracin 3-4 times a day for the next 3 days Disposition Disposition: Home, Self Care
[2022-05-22] MEDS: Penicillin G Benzathine 1.2 MU/2 ML Syringe IM (09:09)
[2022-05-22] MEDS: Neomycin/Bacitracin/Polymyxin Opth. Ointment 1 APPLIC LEFT EYE (09:20)
[2022-05-22 09:25] VITALS: BP 114/78; PULSE 72; RESP 16
== END 2022-05-22 09:28 | disposition home or self-care (01) ==
PROVIDERS: Emergency Provider Emergency Medicine; Visit Provider Emergency Medicine
DX: J02.9 Acute pharyngitis, unspecified (principal); E78.5 Hyperlipidemia, unspecified; I25.10 Atherosclerotic heart disease of native coronary artery without angina pectoris; H10.9 Unspecified conjunctivitis; F17.210 Nicotine dependence, cigarettes, uncomplicated; F11.90 Opioid use, unspecified, uncomplicated; R50.9 Fever, unspecified; I25.2 Old myocardial infarction
CPT/HCPCS: 99282

== ENCOUNTER → 2022-06-22 | Outpatient (CLI) | payer MEDICAID, SELFPAY ==
[2022-06-22 10:18] LABS: AST(SGOT) 24 U/L (15-37); Alanine Aminotransfer ALT/SGPT 41 U/L (16-61); Albumin, Serum 3.7 g/dL (3.2-5.0); Alkaline Phosphatase 123 U/L (45-117); Bilirubin, Direct 0.07 mg/dL (0.00-0.30); Cholesterol 138 mg/dL (200); Globulin 4.2 g/dL (2.2-4.2); High Density Lipoprotein 43 mg/dL; Protein, Total 7.9 g/dL (6.4-8.2); Triglycerides 120 mg/dL; Very Low Density Lipoprotein 24 mg/dL (5-40)
== END | disposition home or self-care (01) ==
LOC: LAB 09:00
PROVIDERS: PCP Family Medicine; Referring Provider Physician Assistant Medical; Visit Provider Physician Assistant Medical
DX: I25.10 Atherosclerotic heart disease of native coronary artery without angina pectoris (principal); I25.5 Ischemic cardiomyopathy
CPT/HCPCS: 36415; 80061; 80076

== ENCOUNTER 2023-07-17 04:19 | Emergency (ER) | payer MEDICAID, SELFPAY ==
[2023-07-17 04:20] VITALS: BP 145/93; PULSE 86; RESP 18; TEMP 36.5; O2SAT 99; BMI 32.0
--- NOTE | 2023-07-17 04:25 | EDS_ITS ---
HPI HPI - Female History of Present Illness Chief Complaint: Flank Pain PFSH PFSH Medical History Acute ST elevation myocardial infarction (STEMI) of inferior wall (02/22/21) Anxiety Atherosclerotic heart disease of [place] coronary artery without angina pectoris Depression Hyperlipemia Ischemic cardiomyopathy Nicotine dependence NSTEMI (non-ST elevated myocardial infarction) Substance abuse Home Medications atorvastatin 40 mg tablet 40 mg PO DAILY #90 tabs 07/25/22 [Rx Last Taken Unknown] carvedilol 3.125 mg tablet 3.125 mg PO BID #180 tabs 07/25/22 [Rx Last Taken Unknown] clopidogrel 75 mg tablet (Plavix) 75 mg PO DAILY #90 tabs 07/25/22 [Rx Last Taken Unknown] ondansetron 4 mg disintegrating tablet 4 mg PO Q8H PRN nausea and vomiting 5 day s #15 tabs 07/17/23 [Rx Last Taken Unknown] oxycodone 5 mg capsule 5 mg PO Q6H PRN pain 3 days #12 caps 07/17/23 [Rx Last Taken Unknown] Allergy/AdvReac Type Severity Reaction Status Date / Time No Known Allergies Allergy Verified 07/17/23 04:23 Family History Mother No cardiac disease Father No cardiac disease Surgical History History of coronary artery stent placement (02/22/21) History of left heart catheterization (02/04/22) Social History household members: none Smoking Status: Current every day smoker tobacco type: e-cigarettes Electronic Cigarette Use: with nicotine alcohol intake: former substance use type: former substance user Date of last use: January, heroin, opiates, methamphetamine and other details: fentanyl caffeine: Yes Type: carbonated beverages Number of servings: 2 and coffee Number of servings: 1 EXAM Physical Exam Const Vital Signs: 07/17/23 04:20 Temperature 97.7 F L Temperature Source Temporal Pulse Rate 86 Respiratory Rate 18 Blood Pressure 145/93 H Blood Pressure Mean 110 Pulse Ox 99 Oxygen Delivery Method Room Air MDM MDM MDM Narrative Medical decision making narrative: HISTORY OF PRESENT ILLNESS: 43-year-old male here with right flank pain. States he noted blood in his urine. States on Plavix. He further states he had 1 day of right flank pain has been constant severe. Notes hematuria. Notes history of kidney stone approximate 20 years ago feels similar. Denies any chest pain or shortness of breath. Denies any syncope. Denies any fever. REVIEW OF SYSTEMS: Pertinent positives: Flank pain, hematuria Pertinent negatives: Syncope, chest pain, focal weakness PHYSICAL EXAM: Nursing triage notes reviewed, Vital signs reviewed Constitutional: please see mdm HENT: MMM Eyes: Pupils equal round and reactive to light, Extraocular muscles intact Neck: No stridor, no JVD, full neck ROM Lungs: Clear to auscultation, No wheezing or rales. No increased work of breathing, no conversational dyspnea, no accessory muscle use, no nasal flaring. No respiratory distress noted Heart: Regular rate and rhythm, No murmurs, No rubs and No gallops, 2+ distal pulses (radial, femoral, posterior tibial) in all extremities Abdomen: Soft, there is no tenderness, rigidity, rebound or guarding, no obvious peritoneal signs, no palpable pulsatile abdominal masses, no auscultated abdominal bruit : R CVAT Extremities: No edema Neuro: No focal neurological deficits, cranial nerves II through XII intact, 5/5 strength in all extremities. Intact sensation to light touch in all extremities, 2+ reflexes bilateral patella tendons. Normal gait. No ataxia. Skin: No rash or lesions noted MEDICAL DECISION MAKING: Chief Complaint: Flank pain External records reviewed: No recent advanced imaging of the abdomen or pelvis Factors affecting care: History of ischemic cardiomyopathy, hyperlipidemia, STEMI Social determinants of health: Current everyday smoker History obtained from others: none Consults: none [facility] Narrative: Patient was initially hemodynamically stable, afebrile, nontoxic-appearing. I considered the following differential diagnosis: Nephrolithiasis, UTI, pyelonephritis, AAA A broad lab and imaging work-up to further elucidate etiology of the patient's complaints. I gave IV narcotics, IV anti-inflammatories, IV fluids and IV nausea medicine as treatment. ALL IMAGES (IF OBTAINED) HAVE BEEN PERSONALLY REVIEWED AND INTERPRETED BY MYSELF. CBC without leukocytosis, severe anemia, no thrombocytopenia. BMP without evidence of significant electrolyte abnormalities, no anion gap, no acute kidney injury. Lipase minimally elevated consistent with increased pancreatic inflammation UA with evidence of hematuria and inflammation likely secondary to kidney stone LFTs show no evidence of hepatobiliary pathology. CT scan of the abdomen pelvis shows evidence of a proximal 5 mm stone at the UVJ, no AAA The amalgamation of the patient's labs and images were consistent with nephrolithiasis. The stone is of size and location it should pass on its own. Gave narcotic pain medicine, Zofran for home-going if strict return precautions. The patient and/or family, caregivers express understanding. The patient and/or family, caregivers agrees with the plan. Shared decision making: I will have a discussion with the patient and or visitors regarding risk/benefits of further testing or admission. They will be made aware of of the risk/benefits inherent in this decision they will be given the opportunity to voice understanding. Total critical care time today provided was at least 0 [] minutes. This excludes separately billable procedures. Critical care time (if documented) is secondary to the patient having high probability of clinically significant/life threatening deterioration in the patient's condition which required my urgent intervention. Impression: 1. Nephrolithiasis 2. Flank pain 3. Dysuria 4. Hematuria 5. Elevated lipase Dispo: Discharge Lab Data Labs: Laboratory Results - last 24 hr 07/17/23 07/17/23 04:39 04:45 WBC 9.9 RBC 5.30 Hgb 16.4 Hct 48.2 MCV 90.9 MCH 30.9 MCHC 34.0 RDW Std Deviation 44.5 H RDW Coeff of [place] 13.3 Plt Count 360 MPV 9.4 Immature Gran % (Auto) 0.200 Neut % (Auto) 55.6 Lymph % (Auto) 32.9 [place] % (Auto) 8.3 Eos % (Auto) 2.3 Baso % (Auto) 0.7 Absolute Neuts (auto) 5.5 Absolute Lymphs (auto) 3.26 Nucleated RBC % 0 Sodium 141 Potassium 3.6 Chloride 110 H Carbon Dioxide 27.0 Anion Gap 4 L BUN 19 H Creatinine 1.03 Estim Creat Clear Calc 105.30 Est GFR (MDRD) Af Amer 100 Est GFR (MDRD) Non-Af 83 BUN/Creatinine Ratio 18.4 Glucose 114 H Calcium 8.9 Total Bilirubin 0.40 Direct Bilirubin 0.12 AST 19 ALT 44 Alkaline Phosphatase 116 Total Protein 7.9 Albumin 4.0 Globulin 3.9 Lipase 162 H Urine Color Red Urine Clarity Turbid Urine pH 6.0 Ur Specific [place] 1.030 Urine Protein 100 H Urine Glucose (UA) Normal Urine Ketones Negative Urine Occult Blood 250 H Urine Nitrite Negative Urine Bilirubin Negative Urine Urobilinogen 1 H Ur Leukocyte Esterase 25 H Urine RBC > 100 SEEN Urine WBC 0-5 SEEN Ur Squamous Epith Cells 0 SEEN Urine Bacteria 1+ Urine Mucus 0 SEEN Radiography Diagnostic Testing: Clinical Impression(s) from Imaging Studies Abdomen/Pelvis CT 07/17/23 04:28 IMPRESSION: 1. Moderate right hydronephrosis due to a 5 x 1.5 x 2.5 mm stone which lies within the distal ureter near the UVJ. 2. Cholelithiasis. 3. Coronary artery calcification. 4. Mild colonic diverticulosis without evidence for acute diverticulitis. Electronically Signed: Shawn Cárdenas MD at 5:09 EDT , Discharge Plan Triage Chief Complaint: Flank Pain ED Provider: Cosmo Kraus Dx/Rx/DC Orders Instructions: Kidney Stone (Urine) Prescriptions: New oxycodone 5 mg capsule 5 mg PO Q6H PRN (Reason: pain) 3 Days Qty: 12 0RF ondansetron 4 mg tablet,disintegrating 4 mg PO Q8H PRN (Reason: nausea and vomiting) 5 Days Qty: 15 0RF No Action atorvastatin 40 mg tablet 40 mg PO DAILY Qty: 90 3RF carvedilol 3.125 mg tablet 3.125 mg PO BID Qty: 180 3RF Rx Instructions: must administer with a meal/food clopidogrel [Plavix] 75 mg tablet 75 mg PO DAILY Qty: 90 3RF Stand Alone Forms: ED Work / School Excuse Primary Care Provider: Care Physician,No Primary Referrals: Júnior Bauer MD [Med Staff - Preschool Program Director] - Activity Restrictions/Additional Instructions: Thank you for trusting us with your care today! Please take Tylenol (2 pills, 650 mg), ibuprofen (2 pills, 400 mg) every 6 hours as needed for pain and fever control. Please take oxycodone if your pain is not controlled by the above regimen. Please take Zofran as needed for nausea vomiting control. Please return to the emergency department if your symptoms change or worsen. Specifically develop worsening pain is not controlled by the above regimen. If develop nausea vomiting cannot tolerate medicine by mouth. Do not urinate for greater than 12 hours. Please follow with your primary care physician for further outpatient evaluation and management. Disposition Disposition: Home, Self Care
--- NOTE | 2023-07-17 04:28 | CT_ITS ---
EXAM: CT ABDOMEN AND PELVIS WITHOUT INTRAVENOUS CONTRAST CLINICAL INDICATION: Kidney Stone TECHNIQUE: Helically acquired images were obtained of the abdomen and pelvis without intravenous contrast. This CT exam was performed using one or more of the following dose reduction techniques: automated exposure control, adjustment of the mA and/or kV according to patient size, and/or use of iterative reconstruction technique. RADIATION DOSE: Total DLP: 1176.60 mGy-cm. COMPARISON: No relevant prior studies available. FINDINGS: LOWER THORAX: No acute basilar pulmonary infiltrates or pleural effusions. Coronary artery calcification is present. No significant pericardial effusion. ABDOMEN: LIVER: Unremarkable. Homogeneous. GALLBLADDER AND BILE DUCTS: Gallbladder is normal in size and contains a single large calcified stone. No findings of acute cholecystitis, biliary ductal dilatation or calcified common duct stone identified. PANCREAS: Unremarkable. No focal cystic mass. SPLEEN: Unremarkable. Normal size without focal cystic or solid mass. ADRENALS: Unremarkable. No nodules. KIDNEYS AND URETERS: Right kidney is mildly enlarged and edematous with moderate hydronephrosis and mild-moderate hydroureter; right-sided perirenal and periureteral stranding are noted. Within the distal right ureter near the UVJ is a 5 x 1.5 x 2.5 mm ovoid stone. The left kidney is normal in size. 3 mm nonobstructing stone within the left renal upper pole collecting system. No left-sided hydronephrosis. STOMACH AND BOWEL: Stomach is partially decompressed. No periduodenal inflammatory changes or distended small bowel loops. Scattered diverticula project from the descending and sigmoid colon, without evidence for acute diverticulitis. PELVIS: APPENDIX: Normal. No evidence of acute appendicitis. BLADDER: Urinary bladder is empty. REPRODUCTIVE: Unremarkable as visualized. No mass. ABDOMEN and PELVIS: INTRAPERITONEAL SPACE: Unremarkable. No ascites or other fluid collection. No free air. BONES/JOINTS: Lower thoracic and lumbar degenerative disc disease including degenerative disc space narrowing with vacuum disc phenomenon and marginal osteophytes at the L4/5 and L5/S1 levels. Midline disc/osteophyte complex at L4/5 moderately flattens the ventral aspect of the thecal sac, which is narrowed to about 8 mm in AP diameter. Broad-based annular bulging and posterolateral osteophytes cause moderate severe narrowing of the neural foramina bilaterally at L5/S1. SOFT TISSUES: Small bilateral inguinal hernias are noted. VASCULATURE: Abdominal aorta and its branches are minimally calcific. No AAA. Abdominal aorta is non-dilated. LYMPH NODES: Unremarkable. No enlarged lymph nodes. CT/Abdomen/Pelvis without Cont IMPRESSION: 1. Moderate right hydronephrosis due to a 5 x 1.5 x 2.5 mm stone which lies within the distal ureter near the UVJ. 2. Cholelithiasis. 3. Coronary artery calcification. 4. Mild colonic diverticulosis without evidence for acute diverticulitis. Electronically Signed: Shawn Cárdenas MD at 5:09 EDT ,
[2023-07-17] MEDS: Ketorolac 15 MG/ML Vial IV (04:37)
[2023-07-17] MEDS: Ondansetron 4 MG/2 ML Vial IV ×2 (04:37→06:52)
[2023-07-17 04:54] LABS: Mucous, Urine 0 SEEN /hpf (<or=2+); Squamous Epithelial Cells - UA 0 SEEN /hpf (0-5)
[2023-07-17 04:55] LABS: Absolute Lymphocyte Count 3.26 X10^3/uL (0.83-4.51); Absolute Neutrophil Count 5.5 X10^3/uL (2.0-7.7); Basophil# 0.07 X10^3/uL; Basophil% 0.7 % (0-1); Eosinophil# 0.23 X10^3/uL; Eosinophils% 2.3 % (0-5); Hematocrit 48.2 % (40-54); Hemoglobin 16.4 g/dL (13.0-16.5); Lymphocyte # 3.26 X10^3/ul (0.83-4.51); Lymphocyte % 32.9 % (19-41); Mean Corpuscular Hgb 30.9 pg (27.0-32.0); Mean Corpuscular Volume 90.9 fL (80-94); Mean Platelet Vol. 9.4 fl (6.2-12.0); Monocyte# 0.82 X10^3/uL; Monocyte% 8.3 % (0-10); NRBC Flagged by Analyzer 0 % (0-5); Neutrophil % 55.6 % (47-70); Platelet Count 360 K/mm3 (150-450); RBC Distribution Width CV 13.3 % (11.6-14.6); RBC Distribution Width SD 44.5 fl (35.1-43.9); White Blood Count 9.9 K/mm3 (4.4-11.0)
[2023-07-17 05:04] LABS: Color, Urine Red (Yellow); Glucose, Dipstick Normal (Normal); Ketone-Dipstick Negative (Negative); Leukocyte Esterase-Dipstick 25 /ul (Negative); Nitrite-Dipstick Negative (Negative); Occult Blood-Urine 250 /ul (Negative); Protein-Dipstick 100 mg/dl (Negative); Urine Bilirubin Dipstick Negative (Negative); Urine Clarity Turbid (Clear); Urine Urobilinogen 1 mg/dl (Normal)
[2023-07-17 05:11] LABS: Anion Gap 4 (5-15); BUN 19 mg/dL (7-18); BUN/Creat Ratio 18.4 RATIO (10-20); Calcium,Total 8.9 mg/dL (8.5-10.1); Chloride 110 mmol/L (98-107); Creatinine, Serum 1.03 mg/dL (0.70-1.30); EST Glomerular Filtration Rate 83 mL/min (>60); Est Glom Filt Rate - Afr Amer 100 mL/min (>60); Glucose 114 mg/dL (74-106); Lipase 162 U/L (13-75); Potassium 3.6 mmol/L (3.5-5.1); Sodium Level 141 mmol/L (136-145)
[2023-07-17 05:49] LABS: Bacteria 1+ /hpf (None Seen); Red Blood Cells-Urine > 100 SEEN /hpf (0-5); White Blood Cells 0-5 SEEN /hpf (0-5)
[2023-07-17 06:00] LABS: AST(SGOT) 19 U/L (15-37); Alanine Aminotransfer ALT/SGPT 44 U/L (16-61); Alkaline Phosphatase 116 U/L (45-117); Bilirubin, Direct 0.12 mg/dL (0.00-0.30); Globulin 3.9 g/dL (2.2-4.2); Protein, Total 7.9 g/dL (6.4-8.2)
[2023-07-17] MEDS: Morphine 4 MG/ML Syringe IV (06:53)
== END 2023-07-17 07:19 | disposition home or self-care (01) ==
PROVIDERS: Emergency Provider Emergency Medicine; Visit Provider Emergency Medicine
DX: N13.2 Hydronephrosis with renal and ureteral calculous obstruction (principal); I25.10 Atherosclerotic heart disease of native coronary artery without angina pectoris; F17.210 Nicotine dependence, cigarettes, uncomplicated; I25.5 Ischemic cardiomyopathy; R10.9 Unspecified abdominal pain; R74.8 Abnormal levels of other serum enzymes; R31.9 Hematuria, unspecified; E78.5 Hyperlipidemia, unspecified; R30.0 Dysuria; R11.0 Nausea; I25.2 Old myocardial infarction
CPT/HCPCS: 74176; 80048; 80076; 81001; 83690; 85025; 96374; 96375; 96376; 99282; A4216; J2405